=== PATIENT | female | born 1970 | race Caucasian/White ===

== ENCOUNTER 2018-07-21 16:06 | Emergency (ER) | payer MEDICAID ==
[~2018-07-21] VITALS: Ht 160 cm; Wt 79.4 kg
[~2018-07-21 16:06] MED LIST: ONDA4TAB11 PO; SULF-222 PO
--- NOTE | 2018-07-21 16:14 | ED Suture Removal/Wound Check ---
Suture/Wound Re-check Suture Removal/Wound Recheck : Suture Removal/Wound Recheck: Packing removed Progress I have seen and evaluated the patient. I removed the packing. I also reviewed her culture report and her organism is sensitive to Bactrim. She was instructed to continue antibiotic and previously instructed discharge plans. General Appearance: WD/WN, no apparent distress Skin Exam: normal color, warm/dry, other (yeast infection to the groin area. packing to left groin was removed. ) Physical Exam Vital Signs Vital Signs - First Documented 07/21/18 07/21/18 16:15 16:46 Temp 96.8 Pulse 89 Resp 16 B/P (MAP) 124/66 Pulse Ox 97 O2 Delivery Room Air Capillary Refill : General Appearance: WD/WN, no apparent distress Departure Impression Primary Impression: Abscess Disposition: 01 HOME, SELF-CARE Condition: Stable/Unchanged Departure-Patient Inst. Decision time for Depature: 16:29 Referrals: KENDRA VEGA,LOCAL PHYSICIAN (PCP) Primary Care Physician Patient Instructions: Wound Incision and Drainage (DC), Wound Care (DC) Add. Discharge Instructions: Continue your course of antibiotic treatment. Continue previously instructed discharge plans. Follow-up with a primary care provider within 1 week for recheck. Call first thing tomorrow morning for an appointment time. I have provided the contact information to Dr. Vega at [facility]. Return back to the emergency room for any concerns as needed. All discharge instructions reviewed with patient and/or family. Voiced understanding. BRENT SOTOMAYOR Jul 21, 2018 16:14
[2018-07-21 16:46] VITALS: BP 124/66
--- OUTSIDE RECORDS SUMMARY | 2018-07-21 19:05 | XMS REPORT | Continuity of Care Document ---
Author Author [facility] Address Unknown Phone Unavailable Allergies Active Description Code Type Severity Reaction Onset Reported/Identified Relationship to Patient Clinical Status Yes No Known Allergies Drug N/A N/A Medications There is no data. Problems Date Dx Coded Attending Type Code Diagnosis Diagnosed By 08/22/2013 Other 564.00 07/30/2015 Other 491.0 SIMPLE CHR BRONCHITIS 12/02/2016 Other 250.01 DIAB ROSALIND WO COMPL, TYPE I [JUVENILE TYPE], NOT UNCNTRLD 12/02/2016 Other V58.69 OTH MED, LT,CURRENT USE 12/02/2016 Other V82.9 SCREEN FOR CONDITION NOS 12/02/2016 Other 244.9 HYPOTHYROIDISM NOS 12/02/2016 Other 250.01 DIAB ROSALIND WO COMPL, TYPE I [JUVENILE TYPE], NOT UNCNTRLD 12/02/2016 Other V70.0 ROUTINE MEDICAL EXAM 09/08/2017 Other 250.01 DIAB ROSALIND WO COMPL, TYPE I [JUVENILE TYPE], NOT UNCNTRLD 09/08/2017 Other V58.69 OTH MED, LT,CURRENT USE 09/08/2017 Other V82.9 SCREEN FOR CONDITION NOS 09/08/2017 Other 244.9 HYPOTHYROIDISM NOS 09/08/2017 Other 250.01 DIAB ROSALIND WO COMPL, TYPE I [JUVENILE TYPE], NOT UNCNTRLD 09/08/2017 Other V70.0 ROUTINE MEDICAL EXAM Procedures There is no data. Results Test Result Range [facility] - 03/11/13 11:35 Osmo Calculated CANCEL-INCORRECT Sodium CANCEL-INCORRECT Potassium CANCEL-INCORRECT Calcium CANCEL-INCORRECT BUN CANCEL-INCORRECT Chloride CANCEL-INCORRECT Anion GAP CANCEL-INCORRECT Bun/Creat CANCEL-INCORRECT CO2 CANCEL-INCORRECT Glucose CANCEL-INCORRECT Creatinine CANCEL-INCORRECT Encounters ACCT No. Visit Date/Time Discharge Status Pt. Type Provider Facility Loc./Unit Complaint [id number] 03/11/2013 11:05:00 03/11/2013 11:05:00 ANAHI MATHUR MD, MARTINEZ [facility] DAYSTA [id number] 07/04/2018 15:59:00 Document Registration [id number] 12/26/2017 10:04:11 ACT Unknown [id number] 09/08/2017 11:19:00 09/08/2017 23:59:59 [facility] Outpatient KERLINE CRAWFORD, MJ [facility] [id number] 07/30/2015 19:00:00 Document Registration [id number] 12/10/2014 09:46:00 Document Registration [id number] 08/21/2013 22:22:00 Document Registration [id number] 05/30/2013 09:30:00 Document Registration [id number] 04/13/2016 14:49:00 04/13/2016 14:50:00 DIS Emergency KINZA NAPIER [facility] EMR
== END 2018-07-21 16:46 | disposition home or self-care (01) ==
LOC: EDUNIT# 16:06 → ER 16:08
DX: L02.214 Cutaneous abscess of groin (principal)

== ENCOUNTER 2018-11-04 04:28 | Emergency (ER) | payer MEDICAID ==
[~2018-11-04] VITALS: Ht 160 cm; Wt 78.5 kg
--- OUTSIDE RECORDS SUMMARY | 2018-11-04 04:35 | XMS REPORT ---
Author Author KINZA BRICEÑO Organization [facility] Address [address] [place] [address] Care Team Providers Care Business English Instructor Name Role Phone KINZA BRICEÑO Unavailable PROBLEMS Type Condition ICD9-CM Code [id number] Code Onset Dates Condition Status SNOMED Code Problem Hyperlipidemia E78.5 Active 32788941 Problem Menopausal and perimenopausal disorder N95.9 Active 028722129 Problem Type 1 diabetes E10.9 Active 329933286 Problem Hypothyroidism E03.9 Active 56100193 Problem Diabetic neuropathy E11.40 Active 407743466 ALLERGIES No Information ENCOUNTERS Encounter Location Date Diagnosis [place] [address] [id number] [place] [address] Oct, Hyperlipidemia E78.5 and Menopausal and perimenopausal disorder N95.9 [facility] [id number] [place] [address] Oct, Type 1 diabetes E10.9 [place] [id number] [place] [address] Oct, Type 1 diabetes E10.9 [place] [id number] [place] [address] 26161- 4[address] Oct, Type 1 diabetes E10.9 ; Hypothyroidism E03.9 and Diabetic neuropathy E11.40 [facility] [id number] [place] [address] Sep, IMMUNIZATIONS No Known Immunizations SOCIAL HISTORY Never Assessed REASON FOR VISIT Requests return call PLAN OF CARE VITAL SIGNS MEDICATIONS Medication Instructions Dosage Frequency Start Date End Date Duration Status Humalog 100 UNIT/ML Subcutaneous 3 times a day 12 units with morning meal and 6 units with lunch and evening meal. 8h 30 days Active RESULTS No Results PROCEDURES No Known procedures INSTRUCTIONS MEDICATIONS ADMINISTERED No Known Medications MEDICAL (GENERAL) HISTORY Type Description Date Medical History diabetes Medical History menieres disease Medical History d&c surgeries from miscarriage Medical History hypothyroidism Surgical History d&C from miscarriages (4)
--- OUTSIDE RECORDS SUMMARY | 2018-11-04 04:35 | XMS REPORT ---
Author Author KINZA BRICEÑO Organization [facility] Address [address] [place] [address] Care Team Providers Care Store Keeper Name Role Phone KINZA BRICEÑO Unavailable PROBLEMS Type Condition ICD9-CM Code [id number] Code Onset Dates Condition Status SNOMED Code Problem Hypothyroidism E03.9 Active 26472661 Problem Diabetic neuropathy E11.40 Active 816253358 Problem Type 1 diabetes E10.9 Active 112385183 ALLERGIES No Information ENCOUNTERS Encounter Location Date Diagnosis [facility] [address] [place] [address]- [phone] Oct, [facility] [place] [id number] [place] [address]2682- [address] Oct, Type 1 diabetes E10.9 [facility] [place] [id number] [place] [address]- 5[address] Oct, Type 1 diabetes E10.9 ; Hypothyroidism E03.9 and Diabetic neuropathy E11.40 [facility] [place] [address] [place] [address]- [address] Sep, IMMUNIZATIONS No Known Immunizations SOCIAL HISTORY Never Assessed REASON FOR VISIT medication PLAN OF CARE VITAL SIGNS MEDICATIONS Medication Instructions Dosage Frequency Start Date End Date Duration Status Humalog 100 unit/ml Subcutaneous 3 times a day 12 units with morning meal and 6 units with lunch and evening meal. 8h 30 days Active Lantus SoloStar 100 UNIT/ML Subcutaneous Once a day 24 units 24h 30 days Active RESULTS No Results PROCEDURES No Known procedures INSTRUCTIONS MEDICATIONS ADMINISTERED No Known Medications MEDICAL (GENERAL) HISTORY Type Description Date Medical History diabetes Medical History menieres disease Medical History d&c surgeries from miscarriage Medical History hypothyroidism Surgical History d&C from miscarriages (4)
--- OUTSIDE RECORDS SUMMARY | 2018-11-04 04:35 | XMS REPORT ---
Author Author KINZA BRICEÑO Organization [facility] Address [address] [place] [address] Care Team Providers Care Advanced Analytics Associate Name Role Phone KINZA BRICEÑO Unavailable PROBLEMS Type Condition ICD9-CM Code CEZ46-UG Code Onset Dates Condition Status SNOMED Code Problem Hyperlipidemia E78.5 Active 38982747 Problem Menopausal and perimenopausal disorder N95.9 Active 434290953 Problem Type 1 diabetes E10.9 Active 075773756 Problem Hypothyroidism E03.9 Active 71163208 Problem Diabetic neuropathy E11.40 Active 975353969 ALLERGIES No Information ENCOUNTERS Encounter Location Date Diagnosis [place] [id number] [address] Nov, [facility] [address] [address] Oct, [place] [address] [address] Oct, Hyperlipidemia E78.5 and Menopausal and perimenopausal disorder N95.9 [facility] [address] [address] Oct, Type 1 diabetes E10.9 [facility] [id number] [place] [address] Oct, Type 1 diabetes E10.9 [facility] [address] [address] Oct, Type 1 diabetes E10.9 ; Hypothyroidism E03.9 and Diabetic neuropathy E11.40 [place] [address] [address] Sep, IMMUNIZATIONS No Known Immunizations SOCIAL HISTORY Never Assessed REASON FOR VISIT DM ED Scheduled PLAN OF CARE VITAL SIGNS MEDICATIONS Unknown Medications RESULTS No Results PROCEDURES No Known procedures INSTRUCTIONS MEDICATIONS ADMINISTERED No Known Medications MEDICAL (GENERAL) HISTORY Type Description Date Medical History diabetes Medical History menieres disease Medical History d&c surgeries from miscarriage Medical History hypothyroidism Surgical History d&C from miscarriages (4)
--- OUTSIDE RECORDS SUMMARY | 2018-11-04 04:35 | XMS REPORT ---
Demographics Preferred Language Unknown Marital Status Unknown Orthodoxy Affiliation Unknown Race Unknown Ethnic Group Unknown Author Author LOVELY VALIENTE Organization [facility] Address [address] [place] [address] Care Team Providers Care Net Mobile Developer Name Role Phone LOVELY VALIENTE Unavailable PROBLEMS Unknown Problems ALLERGIES No Information ENCOUNTERS Encounter Location Date Diagnosis [facility] [address] [facility] [id number] [place] [address] Sep, IMMUNIZATIONS No Known Immunizations SOCIAL HISTORY Never Assessed REASON FOR VISIT request return call PLAN OF CARE VITAL SIGNS MEDICATIONS Unknown Medications RESULTS No Results PROCEDURES No Known procedures INSTRUCTIONS MEDICATIONS ADMINISTERED No Known Medications
--- OUTSIDE RECORDS SUMMARY | 2018-11-04 04:35 | XMS REPORT ---
Author Author KINZA BRICEÑO Organization [facility] Address [address] [place] [address] Care Team Providers Care Hospitality Associate Name Role Phone KINZA BRICEÑO Unavailable PROBLEMS Type Condition ICD9-CM Code FTA75-TQ Code Onset Dates Condition Status SNOMED Code Problem Hyperlipidemia E78.5 Active 70390712 Problem Menopausal and perimenopausal disorder N95.9 Active 412814190 Problem Type 1 diabetes E10.9 Active 476509832 Problem Hypothyroidism E03.9 Active 43206909 Problem Diabetic neuropathy E11.40 Active 298533917 ALLERGIES No Information ENCOUNTERS Encounter Location Date Diagnosis [place] [address] [place] [id number] [place] [address]1672- [address] Oct, Hyperlipidemia E78.5 and Menopausal and perimenopausal disorder N95.9 [facility] [id number] [place] [address] 61201- [address] Oct, Type 1 diabetes E10.9 [place] [id number] [place] [address] 25638- [address] Oct, Type 1 diabetes E10.9 [place] [id number] [place] [address]- [address] Oct, Type 1 diabetes E10.9 ; Hypothyroidism E03.9 and Diabetic neuropathy E11.40 [place] [id number] [place] [address] 06[address]- 0524 Sep, IMMUNIZATIONS No Known Immunizations SOCIAL HISTORY Never Assessed REASON FOR VISIT PLAN OF CARE VITAL SIGNS MEDICATIONS Medication Instructions Dosage Frequency Start Date End Date Duration Status Atorvastatin Calcium 20 MG Orally Once a day 1 tablet 24h Oct, 30 day(s) Active RESULTS No Results PROCEDURES No Known procedures INSTRUCTIONS MEDICATIONS ADMINISTERED No Known Medications MEDICAL (GENERAL) HISTORY Type Description Date Medical History diabetes Medical History menieres disease Medical History d&c surgeries from miscarriage Medical History hypothyroidism Surgical History d&C from miscarriages (4)
--- OUTSIDE RECORDS SUMMARY | 2018-11-04 04:35 | XMS REPORT ---
Author Author KINZA BRICEÑO Organization [facility] Address [address] [place] [address] Care Team Providers Care Beam Warper Name Role Phone KINZA BRICEÑO Unavailable PROBLEMS Type Condition ICD9-CM Code QGL32-AC Code Onset Dates Condition Status SNOMED Code Problem Hyperlipidemia E78.5 Active 31868428 Problem Menopausal and perimenopausal disorder N95.9 Active 590778323 Problem Type 1 diabetes E10.9 Active 155349644 Problem Hypothyroidism E03.9 Active 44729546 Problem Diabetic neuropathy E11.40 Active 862784850 ALLERGIES No Known Allergies ENCOUNTERS Encounter Location Date Diagnosis [place] [address] [address] Nov, [facility] [address] [address] Oct, [facility] [address] [address] Oct, Hyperlipidemia E78.5 and Menopausal and perimenopausal disorder N95.9 [facility] [id number] [place] [address]- [address] Oct, Type 1 diabetes E10.9 [facility] [id number] [place] [address] 88342- [address] Oct, Type 1 diabetes E10.9 [facility] [address] [address]- [address] Oct, Type 1 diabetes E10.9 ; Hypothyroidism E03.9 and Diabetic neuropathy E11.40 [facility] [address] [address]- [address] Sep, IMMUNIZATIONS No Known Immunizations SOCIAL HISTORY Never Assessed REASON FOR VISIT Establish Care - dr yost in [facility] - nancy gage , help with medications - conor GAGE , having problems with thyroid/ very tired/ has lump in neck Nancy GAGE , says sugar levels are going up and down due to stress _Servando PLAN OF CARE Activity Details Follow Up 3 Months Reason: VITAL SIGNS Height 5'3 in 2018-10-24 Weight 176.1 lbs 2018-10-24 Temperature 98.0 degrees Fahrenheit 2018-10-24 Heart Rate 82 bpm 2018-10-24 Respiratory Rate 16 2018-10-24 BMI 34.39 kg/m2 2018-10-24 Blood pressure systolic 88 mmHg 2018-10-24 Blood pressure diastolic 54 mmHg 2018-10-24 MEDICATIONS Medication Instructions Dosage Frequency Start Date End Date Duration Status Humalog 100 unit/ml Subcutaneous 3 times a day as directed 8h Active BD Insulin Syringe Ultrafine 31G X 5/16 as directed Active True Metrix Level 2 Normal as directed Active Lantus SoloStar 100 UNIT/ML Subcutaneous at bedtime as directed Active RESULTS No Results PROCEDURES Procedure Date Ordered Result Body Site LAB NOT BILLED BY [employer] Oct 24, 2018 GLYCATED HEMOGLOBIN TEST Oct 24, 2018 INSTRUCTIONS MEDICATIONS ADMINISTERED No Known Medications MEDICAL (GENERAL) HISTORY Type Description Date Medical History diabetes Medical History menieres disease Medical History d&c surgeries from miscarriage Medical History hypothyroidism Surgical History d&C from miscarriages (4)
[2018-11-04] MEDS ORDERED: IBUPROFEN 800 MG (MOTRIN) TAB PO ONE (04:45)
--- NOTE | 2018-11-04 04:46 | ED Fall/Injury ---
General Chief Complaint: Lower Extremity Stated Complaint: FALL-RT KNEE PAIN Nursing Triage Note: Patient lost her footing and fell directly on her left knee. She is rating her knee pain at 9/10. Source: patient, spouse Exam Limitations: no limitations History of Present Illness Date Seen by Provider: Nov 04, 2018 Time Seen by Provider: 04:34 Initial Comments Patient presents the ER by EMS with chief complaint that she was stepping down a carpeted stair this morning and fell forward landing on her right knee in a flexed position. She did not strike her head nor lose consciousness or have any nausea. She's not having any dysuria or pain anywhere but in her right knee. She has a history of knee effusions and her doctor had talked about maybe having it tapped. She has sensation in her foot but is having significant pain which she relates as moderate to severe. She has not taken anything for the pain yet. EMS reports that she was able to stand up with 2 persons assist and put more than toe-touch pressure on it. Allergies and Home Medications Allergies Coded Allergies: No Known Drug Allergies (Unverified , 11/04/18) Home Medications Ondansetron 4 Mg Tab.rapdis, 4 MG PO Q6H PRN for NAUSEA/VOMITING Prescribed by: LORRAINE MILIAN on 07/18/18 1007 Sulfamethoxazole/Trimethoprim 1 Each Tablet, 1 EACH PO BID Prescribed by: LORRAINE MILIAN on 07/18/18 1007 Patient Home Medication List Home Medication List Reviewed: Yes Review of Systems Review of Systems Constitutional: No chills, No diaphoresis Eyes: Denies Blindness, Denies Blurred Vision Ears, Nose, Mouth, Throat: denies ear pain, denies ear discharge Respiratory: No cough, No short of breath Cardiovascular: No chest pain, No edema Gastrointestinal: No abdominal pain, No constipation, No diarrhea, No nausea Genitourinary: No discharge, No dysuria : No Past Txopogh-Atodhb-Tpaptq Hx Patient Social History Alcohol Use: Denies Use Recreational Drug Use: No Type Used: Cigarettes 2nd Hand Smoke Exposure: Yes Recent Foreign Travel: No Contact w/Someone Who Travel: No Recent Infectious Disease Expo: No Recent Hopitalizations: No Seasonal Allergies Seasonal Allergies: No Past Medical History Surgeries: Yes (DNC) Section Respiratory: No Currently Using CPAP: No Currently Using BIPAP: No Cardiac: No Neurological: No Genitourinary: No Gastrointestinal: No Musculoskeletal: No Endocrine: Yes Diabetes, Insulin dep HEENT: Yes (Meniere disease) Loss of Vision: Denies Hearing Impairment: Denies Cancer: No Psychosocial: Yes (OCD) Anxiety Integumentary: Yes Pruritis, Recent Skin Changes Blood Disorders: No Family Medical History Heart Disease, Diabetes Physical Exam Vital Signs Vital Signs - First Documented 11/04/18 04:32 Pulse 74 Resp 14 B/P (MAP) 130/64 (86) Pulse Ox 98 O2 Delivery Room Air Capillary Refill : Less Than 3 Seconds Height, Weight, BMI Height: 5'3.00" Weight: 173lbs. oz. 78.496507cb; 28.12 BMI Method:Stated General Appearance: WD/WN, mild distress HEENT: PERRL/EOMI, normal ENT inspection Neck: non-tender, full range of motion Cardiovascular: normal peripheral pulses, regular rate, rhythm Respiratory: no respiratory distress, no accessory muscle use Peripheral Pulses: 2+ Dorsalis Pedis (R), 2+ Left Dors-Pedis (L) Extremities: other (right knee has a mild joint effusion non-ballotable patella without erythema or ecchymoses or deformity.) Neurologic/Psychiatric: no motor/sensory deficits, alert, normal mood/affect, oriented x 3 June Coma Score Best Eye Response: (4) Open Spontaneously Best Verbal Response: (5) Oriented Best Motor Response: (6) Obeys Commands June Total: 15 Progress/Results/Core Measures Results/Orders My Orders Orders - SHAILESH HURTADO Ibuprofen Tablet (Motrin Tablet) (11/04/18 04:45) Knee, Right, 3 Views (11/04/18 04:41) Medications Given in ED Current Medications Medications Dose Ordered Sig/Jone Route Start Time Stop Time Status Last Admin Dose Admin Ibuprofen 800 mg ONCE ONCE PO 11/04/18 04:45 11/04/18 04:47 DC 11/04/18 04:49 800 MG Vital Signs/I&O 11/04/18 04:32 Pulse 74 Resp 14 B/P (MAP) 130/64 (86) Pulse Ox 98 O2 Delivery Room Air Blood Pressure Mean: 86 Diagnostic Imaging Diagonstic Imaging: Xray Plain Films/CT/US/NM/MRI: knee (r) Comments No acute osseous abnormality. There is some effusion seen of the joint Reviewed: Reviewed by Me Departure Impression Primary Impression: Knee pain Qualified Codes: M25.561 - Pain in right knee Additional Impressions: Joint effusion of knee Qualified Codes: M25.461 - Effusion, right knee Fall (on) (from) other stairs and steps, initial encounter Disposition: HOME, SELF-CARE Condition: Stable Departure-Patient Inst. Decision time for Depature: 05:40 Referrals: NO,LOCAL PHYSICIAN (PCP/Family) Primary Care Physician Patient Instructions: Knee Pain (DC) Add. Discharge Instructions: Do some range of motion exercises with your knee and wear a knee wrap for compression. Apply ice for 20 minutes every 4 hours as needed for swelling and pain. Keep the knee elevated when not use. Use Tylenol 1000 mg and/or ibuprofen 800 mg as needed for pain. Follow-up in 7-10 days with primary care for recheck and possible referral as needed. All discharge instructions reviewed with patient and/or family. Voiced understanding. SHAILESH HURTAOD Nov 04, 2018 04:46
--- OUTSIDE RECORDS SUMMARY | 2018-11-04 05:31 | XMS REPORT | Continuity of Care Document ---
Author Author [facility] Address Unknown Phone Unavailable Allergies Active Description Code Type Severity Reaction Onset Reported/Identified Relationship to Patient Clinical Status Yes No Known Allergies Drug N/A N/A Yes No Known Drug Allergies [id number] Drug Allergy Unknown N/A 11/04/2018 Medications There is no data. 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 DEPENDENCE, UNSPECIFIED, UNCOMP 07/18/2018 LORRAINE MILIAN MD Ot F41.9 ANXIETY DISORDER, UNSPECIFIED 07/18/2018 LORRAINE MILIAN MD Ot F42.9 OBSESSIVE-COMPULSIVE DISORDER, UNSPECIFI 07/18/2018 LORRAINE MILIAN MD Ot L02.211 CUTANEOUS ABSCESS OF ABDOMINAL WALL 07/18/2018 LORRAINE MILIAN MD Ot Z82.49 FAMILY HX OF ISCHEM HEART DIS AND OTH DI 07/21/2018 BRENT SOTOMAYOR Ot L02.214 CUTANEOUS ABSCESS OF GROIN 07/24/2018 LORRAINE MILIAN MD Ot E11.65 TYPE 2 DIABETES MELLITUS WITH HYPERGLYCE 07/24/2018 LORRAINE MILIAN MD Ot F17.200 NICOTINE DEPENDENCE, UNSPECIFIED, UNCOMP 07/24/2018 LORRAINE MILIAN MD Ot F41.9 ANXIETY DISORDER, UNSPECIFIED 07/24/2018 LORRAINE MILIAN MD, Ot F42.9 OBSESSIVE-COMPULSIVE DISORDER, UNSPECIFI 07/24/2018 LORRAINE MILIAN MD Ot L02.211 CUTANEOUS ABSCESS OF ABDOMINAL WALL 07/24/2018 LORRAINE MILIAN MD Ot Z82.49 FAMILY HX OF ISCHEM HEART DIS AND OTH DI 07/27/2018 BRENT SOTOMAYOR Ot L02.214 CUTANEOUS ABSCESS OF GROIN Procedures There is no data. Results Test Result Range [facility] - 03/11/13 11:35 Osmo Calculated CANCEL-INCORRECT Sodium CANCEL-INCORRECT Potassium CANCEL-INCORRECT Calcium CANCEL-INCORRECT BUN CANCEL-INCORRECT Chloride CANCEL-INCORRECT Anion GAP CANCEL-INCORRECT Bun/Creat CANCEL-INCORRECT CO2 CANCEL-INCORRECT Glucose CANCEL-INCORRECT Creatinine CANCEL-INCORRECT Complete blood count (CBC) with automated white blood cell (WBC) differential - 07/18/18 06:50 Blood leukocytes automated count (number/volume) 9.6 10*3/uL 4.3-11.0 Blood erythrocytes automated count (number/volume) 4.59 10*6/uL 4.35-5.85 Venous blood hemoglobin measurement (mass/volume) 14.4 g/dL 11.5-16.0 Blood hematocrit (volume fraction) 42 % 35-52 Automated erythrocyte mean corpuscular volume 90 [foz_us] 80-99 Automated erythrocyte mean corpuscular hemoglobin (mass per erythrocyte) 31 pg 25-34 Automated erythrocyte mean corpuscular hemoglobin concentration measurement ( mass/volume) 35 g/dL 32-36 Automated erythrocyte distribution width ratio 14.3 % 10.0-14.5 Automated blood platelet count (count/volume) 221 10*3/uL 130-400 Automated blood platelet mean volume measurement 11.5 [foz_us] 7.4-10.4 Automated blood neutrophils/100 leukocytes 60 % 42-75 Automated blood lymphocytes/100 leukocytes 28 % 12-44 Blood monocytes/100 leukocytes 11 % 0-12 Automated blood eosinophils/100 leukocytes 1 % 0-10 Automated blood basophils/100 leukocytes 0 % 0-10 Blood neutrophils automated count (number/volume) 5.8 10*3 1.8-7.8 Blood lymphocytes automated count (number/volume) 2.7 10*3 1.0-4.0 Blood monocytes automated count (number/volume) 1.0 10*3 0.0-1.0 Automated eosinophil count 0.1 10*3/uL 0.0-0.3 Automated blood basophil count (count/volume) 0.0 10*3/uL 0.0-0.1 Comprehensive metabolic panel - 07/18/18 06:50 Serum or plasma sodium measurement (moles/volume) 134 mmol/L 135-145 Serum or plasma potassium measurement (moles/volume) 4.1 mmol/L 3.6-5.0 Serum or plasma chloride measurement (moles/volume) 99 mmol/L 98-107 Carbon dioxide 27 mmol/L 21-32 Serum or plasma anion gap determination (moles/volume) 8 mmol/L 5-14 Serum or plasma urea nitrogen measurement (mass/volume) 8 mg/dL 7-18 Serum or plasma creatinine measurement (mass/volume) 0.80 mg/dL 0.60-1.30 Serum or plasma urea nitrogen/creatinine mass ratio 10 NRG Serum or plasma creatinine measurement with calculation of estimated glomerular filtration rate > NRG Serum or plasma glucose measurement (mass/volume) 301 mg/dL 70-105 Serum or plasma calcium measurement (mass/volume) 9.2 mg/dL 8.5-10.1 Serum or plasma total bilirubin measurement (mass/volume) 0.5 mg/dL 0.1-1.0 Serum or plasma alkaline phosphatase measurement (enzymatic activity/volume) 105 U/L 40-136 Serum or plasma aspartate aminotransferase measurement (enzymatic activity/ volume) 12 U/L 5-34 Serum or plasma alanine aminotransferase measurement (enzymatic activity/volume ) 9 U/L 0-55 Serum or plasma protein measurement (mass/volume) 7.6 g/dL 6.4-8.2 Serum or plasma albumin measurement (mass/volume) 3.9 g/dL 3.2-4.5 CALCIUM CORRECTED 9.3 mg/dL 8.5-10.1 Blood lactic acid measurement (moles/volume) - 07/18/18 07:02 Blood lactic acid measurement (moles/volume) 0.92 mmol/L 0.50-2.00 Bacterial blood culture - 07/18/18 07:02 Bacterial blood culture NG NRG Capillary blood glucose measurement by glucometer (mass/volume) - 07/18/18 07: 09 Capillary blood glucose measurement by glucometer (mass/volume) 284 mg/dL 70-110 Bacterial blood culture - 07/18/18 07:10 Bacterial blood culture NG NRG Gram stain microscopy - 07/18/18 09:38 Gram stain microscopy Many Gram positive cocci of varying morphologies NRG Bacteria identification in wound by culture - 07/18/18 09:38 Bacteria identification in wound by culture SEE COMMEN NRG FREE TEXT EXTERNAL METHICILLIN-SENSITIVE NRG QUANTITY OF GROWTH . NRG FREE TEXT ENTRY 2 RML SENSITIVITY REPORTED 07/21/18 12:05 NRG RML Sensitivity Panel - 07/18/18 09:38 Oxacillin susceptibility test by minimum inhibitory concentration 1 NRG Clindamycin susceptibility test by minimum inhibitory concentration <= NRG Erythromycin susceptibility test by minimum inhibitory concentration > NRG Trimethoprim/sulfamethoxazole susceptibility test by minimum inhibitoryconcentration S NRG Vancomycin susceptibility test by minimum inhibitory concentration 1 NRG Levofloxacin susceptibility test by minimum inhibitory concentration 4 NRG Rifampin susceptibility test by minimum inhibitory concentration <= NRG Cefazolin susceptibility test by minimum inhibitory concentration < = NRG Linezolid susceptibility test by minimum inhibitory concentration 2 NRG Penicillin G susceptibility test by minimum inhibitory concentration > NRG Minocycline susc GENARO <= NRG CMP - 10/24/18 10:13 GLUCOSE 234 mg/dL 65-99 UREA NITROGEN (BUN) 10 mg/dL 7-25 CREATININE 0.67 mg/dL 0.50-1.10 eGFR NON-AFR. LIBYAN 103 mL/min/1.73m2 > OR=60 eGFR 120 mL/min/1.73m2 > OR=60 BUN/CREATININE RATIO NOT APPLICABLE (calc) 6-22 SODIUM 136 mmol/L 135-146 POTASSIUM 4.5 mmol/L 3.5-5.3 CHLORIDE 101 mmol/L 98-110 CARBON DIOXIDE 30 mmol/L 20-32 CALCIUM 9.4 mg/dL 8.6-10.2 PROTEIN, TOTAL 7.6 g/dL 6.1-8.1 ALBUMIN 4.1 g/dL 3.6-5.1 GLOBULIN 3.5 g/dL (calc) 1.9-3.7 ALBUMIN/GLOBULIN RATIO 1.2 (calc) 1.0-2.5 BILIRUBIN, TOTAL 0.5 mg/dL 0.2-1.2 ALKALINE PHOSPHATASE 92 U/L 33-115 AST 11 U/L 10-35 ALT 8 U/L 6-29 Encounters ACCT No. Visit Date/Time Discharge Status Pt. Type Provider Facility Loc./Unit Complaint [id number] 03/11/2013 11:05:00 03/11/2013 11:05:00 CAN Outpatient KAREEN CRAWFORD, MARTINEZ Tucker [facility] [id number] 07/04/2018 15:59:00 Document Registration [id number] 10/24/2018 09:20:00 10/24/2018 23:59:59 CLS Outpatient [facility] [id number] 10/24/2018 09:20:00 Document Registration [id number] 12/26/2017 10:04:11 ACT Unknown [id number] 09/08/2017 11:19:00 09/08/2017 23:59:59 CLS Outpatient KERLINE CRAWFORD, MJ Guevara [facility] LAB [id number] 07/30/2015 19:00:00 Document Registration [id number] 12/10/2014 09:46:00 Document Registration [id number] 08/21/2013 22:22:00 Document Registration [id number] 05/30/2013 09:30:00 Document Registration [id number] 04/13/2016 14:49:00 04/13/2016 14:50:00 DIS Emergency KINZA NAPIER [facility] EMR [id number] 07/21/2018 16:08:00 07/21/2018 16:46:00 DIS Emergency BRENT SOTOMAYOR [facility] ER WOUND CARE [id number] 07/18/2018 06:36:00 07/18/2018 10:15:00 DIS Emergency LORRAINE MILIAN MD [facility] ER BOIL ON LEFT LEG, FALL ON 07-11-18 [id number] 11/04/2018 04:30:00 ACT Emergency GNEESIS CRAWFORD, SHAILESH Park [facility] ER FALL-RT KNEE PAIN
[2018-11-04 06:08] VITALS: BP 130/64
--- NOTE | 2018-11-04 07:10 | Diagnostic Imaging Report ---
Right knee at 517. Indication: Fell, knee pain. 3 views were obtained. There are no prior studies available for comparison. There is no fracture, dislocation or acute bony abnormality evident. The knee joint is fairly well maintained. The soft tissues are unremarkable. Impression: There is no evidence for an acute bony abnormality. Dictated by: Dictated on workstation # [id number]
== END 2018-11-04 06:08 | disposition home or self-care (01) ==
LOC: EDUNIT# 04:28 → ER 04:30
DX: M25.461 Effusion, right knee (principal); E11.9 Type 2 diabetes mellitus without complications; F41.9 Anxiety disorder, unspecified; F42.9 Obsessive-compulsive disorder, unspecified; Z77.22 Contact with and (suspected) exposure to environmental tobacco smoke (acute) (chronic); Z98.890 Other specified postprocedural states; Z82.49 Family history of ischemic heart disease and other diseases of the circulatory system; W10.8XXA Fall (on) (from) other stairs and steps, initial encounter
CPT/HCPCS: 73562

== ENCOUNTER 2019-01-30 21:10 | Emergency (ER) | payer MEDICAID ==
[~2019-01-30] VITALS: Ht 160 cm; Wt 78.9 kg
--- OUTSIDE RECORDS SUMMARY | 2019-01-30 21:34 | XMS REPORT ---
Author Author RJ SULLIVAN [facility] Address [address] [place] [address] Care Team Providers Care Family Practice Nurse Practitioner Name Role Phone RJ SULLIVAN Unavailable PROBLEMS Type Condition ICD9-CM Code FYF90-UD Code Onset Dates Condition Status SNOMED Code Problem Hyperlipidemia E78.5 Active 46968551 Problem Menopausal and perimenopausal disorder N95.9 Active 668535430 Problem Type 1 diabetes E10.9 Active 267059412 Problem Hypothyroidism E03.9 Active 16127569 Problem Diabetic neuropathy E11.40 Active 012011583 ALLERGIES No Known Allergies ENCOUNTERS Encounter Location Date Diagnosis [facility] [address] [address] Nov, [facility] [id number] [place] [phone] Oct, Abscess L02.91 [facility] [address] [phone] Oct, [facility] [id number] [place] [phone] Oct, Hyperlipidemia E78.5 and Menopausal and perimenopausal disorder N95.9 [facility] [id number] [place] [phone] Oct, Type 1 diabetes E10.9 [facility] [address] [address] Oct, Type 1 diabetes E10.9 [facility] [id number] [place] [phone] Oct, Type 1 diabetes E10.9 ; Hypothyroidism E03.9 and Diabetic neuropathy E11.40 [facility] [id number] [place] [address] Sep, IMMUNIZATIONS No Known Immunizations SOCIAL HISTORY Never Assessed REASON FOR VISIT red, sore area in her left groin area that she noticed last noc. denies any drainage. teo reese of staff infection in left groin area. PLAN OF CARE Activity Details Follow Up prn Reason: VITAL SIGNS Height 5'3 in 2018-11-12 Weight 176.4 lbs 2018-11-12 Temperature 98.0 degrees Fahrenheit 2018-11-12 Heart Rate 84 bpm 2018-11-12 Respiratory Rate 20 2018-11-12 BMI 34.45 kg/m2 2018-11-12 Blood pressure systolic 110 mmHg 2018-11-12 Blood pressure diastolic 68 mmHg 2018-11-12 MEDICATIONS Medication Instructions Dosage Frequency Start Date End Date Duration Status Bactrim DS 800-160 MG Orally Twice a day 1 tablet 12h Oct, 10 days Active True Metrix Level 2 Normal as directed Active Lantus SoloStar 100 UNIT/ML Subcutaneous Once a day 24 units 24h 30 days Active Humalog 100 UNIT/ML Subcutaneous 3 times a day 12 units with morning meal and 6 units with lunch and evening meal. 8h 30 days Active Atorvastatin Calcium 20 MG Orally Once a day 1 tablet 24h Oct, 30 day(s) Active BD Insulin Syringe Ultrafine 31G X 5/16 as directed Active RESULTS No Results PROCEDURES No Known procedures INSTRUCTIONS MEDICATIONS ADMINISTERED No Known Medications MEDICAL (GENERAL) HISTORY Type Description Date Medical History diabetes Medical History menieres disease Medical History d&c surgeries from miscarriage Medical History hypothyroidism Surgical History d&C from miscarriages (4)
--- NOTE | 2019-01-30 21:42 | ED Back Pain ---
General Stated Complaint: PAIN IN LOWER BACK Source of Information: Patient Exam Limitations: No Limitations History of Present Illness Date Seen by Provider: Jan 30, 2019 Time Seen by Provider: 21:41 Initial Comments To ER with midline low back pain. This began 3 days ago. States that she is a type I diabetic. She's had some nausea but no vomiting. No fever or chills. The pain is constant and does not improve with the application of heat. It does not radiate down either leg. She has had some urinary frequency. She is concerned about urinary tract infection Location: Lumbar Spine, Paraspinous Muscles Timing/Duration: 2-3 Days Severity: Moderate Pain/Injury Location: Back Associated Symptoms: lower back pain Allergies and Home Medications Allergies Coded Allergies: No Known Drug Allergies (Unverified , 11/04/18) Home Medications Ondansetron 4 Mg Tab.rapdis, 4 MG PO Q6H PRN for NAUSEA/VOMITING Prescribed by: LORRAINE MILIAN on 07/18/18 1007 Sulfamethoxazole/Trimethoprim 1 Each Tablet, 1 EACH PO BID Prescribed by: LORRAINE MILIAN on 07/18/18 1007 Patient Home Medication List Home Medication List Reviewed: Yes Review of Systems Constitutional: see HPI; No chills, No fever Respiratory: no symptoms reported Cardiovascular: no symptoms reported Gastrointestinal: nausea; No vomiting Genitourinary: no symptoms reported Musculoskeletal: see HPI, back pain Skin: no symptoms reported Psychiatric/Neurological: No Symptoms Reported Past Lkfnkrv-Scytyq-Rykwqd Hx Patient Social History Type Used: Cigarettes 2nd Hand Smoke Exposure: Yes Recent Foreign Travel: No Contact w/Someone Who Travel: No Recent Hopitalizations: No Seasonal Allergies Seasonal Allergies: No Past Medical History Surgeries: Yes (DNC) Section Respiratory: No Currently Using CPAP: No Currently Using BIPAP: No Cardiac: No Neurological: No Genitourinary: No Gastrointestinal: No Musculoskeletal: No Endocrine: Yes Diabetes, Insulin dep HEENT: Yes (Meniere disease) Loss of Vision: Denies Hearing Impairment: Denies Cancer: No Psychosocial: Yes (OCD) Anxiety Integumentary: Yes Pruritis, Recent Skin Changes Blood Disorders: No Family Medical History Heart Disease, Diabetes Physical Exam Vital Signs Vital Signs - First Documented 01/30/19 22:07 Temp 96.4 Pulse 79 Resp 16 B/P (MAP) 124/66 (85) Capillary Refill : Height, Weight, BMI Height: 5'3.00" Weight: 173lbs. oz. 78.266801ll; 28.12 BMI Method:Stated General Appearance: No Apparent Distress, WD/WN HEENT: PERRL/EOMI, TMs Normal Respiratory: Normal Breath Sounds, No Accessory Muscle Use, No Respiratory Distress Gastrointestinal: Normal Bowel Sounds, Non Tender, Soft Extremity: Normal Capillary Refill, Normal Inspection Neurologic/Psychiatric: Alert, Oriented x3 Skin: Normal Color, Warm/Dry Progress/Results/Core Measures Results/Orders Lab Results Laboratory Tests Test 01/30/19 21:34 Range/Units Urine Color YELLOW Urine Clarity SLIGHTLY CLOUDY Urine pH 6 5-9 Urine Specific [place] 1.020 1.016-1.022 Urine Protein 1+ H NEGATIVE Urine Glucose (UA) NEGATIVE NEGATIVE Urine Ketones NEGATIVE NEGATIVE Urine Nitrite NEGATIVE NEGATIVE Urine Bilirubin NEGATIVE NEGATIVE Urine Urobilinogen 1 NORMAL MG/DL Urine Leukocyte Esterase 1+ H NEGATIVE Urine RBC (Auto) NEGATIVE NEGATIVE Urine RBC NONE /HPF Urine WBC 0-2 /HPF Urine Squamous Epithelial Cells 2-5 /HPF Urine Crystals NONE /LPF Urine Bacteria TRACE /HPF Urine Casts NONE /LPF Urine Mucus LARGE H /LPF Urine Culture Indicated NO My Orders Orders - JESSY BOYD APRN Ua Culture If Indicated (01/30/19 21:40) Vital Signs/I&O 01/30/19 22:07 Temp 96.4 Pulse 79 Resp 16 B/P (MAP) 124/66 (85) Departure Impression Primary Impression: Acute low back pain Qualified Codes: M54.5 - Low back pain Disposition: 01 HOME, SELF-CARE Condition: Stable Departure-Patient Inst. Decision time for Depature: 22:12 Referrals: NO,LOCAL PHYSICIAN (PCP/Family) Primary Care Physician Patient Instructions: Low Back Pain (DC) Add. Discharge Instructions: 1. Follow-up with your doctor later this week 2. Return to ER for any concerns 3. Scripts Methocarbamol (Robaxin-750) 750 Mg Tablet 750 MG PO Q6H PRN for PAIN-MODERATE TO SEVERE, #14 TAB Prov: JESSY BOYD APRN 01/30/19 JESSY BOYD APRN Jan 30, 2019 21:42
[2019-01-30 21:51] LABS: BILIRUBIN,URINE NEGATIVE (NEGATIVE); CLARITY,URINE SLIGHTLY CLOUDY; COLOR,URINE YELLOW; GLUCOSE, URINE (UA) NEGATIVE (NEGATIVE); KETONES,URINE NEGATIVE (NEGATIVE); LEUKOCYTE ESTERASE ,URINE 1+ (NEGATIVE); NITRITE,URINE NEGATIVE (NEGATIVE); PH,URINE 6 (5-9); PROTEIN,URINE 1+ (NEGATIVE); UROBILINOGEN,URINE 1 MG/DL (NORMAL)
[2019-01-30 22:06] LABS: BACTERIA,URINE TRACE /HPF; WBC,URINE 0-2 /HPF
[2019-01-30] MEDS ORDERED: METH-313 PO (22:14)
[2019-01-30] MEDS ORDERED: RX-HYDROCODONE/APAP 5/325 MG #4 TAB PK PO ONE (22:15)
[2019-01-30] MEDS ORDERED: RX-HYDROCODONE/APAP 5/325 MG #4 TAB PK PO PRN (22:15)
[2019-01-30 22:18] VITALS: BP 122/60
--- OUTSIDE RECORDS SUMMARY | 2019-01-30 22:25 | XMS REPORT | Continuity of Care Document ---
Author Author [facility] Address Unknown Phone Unavailable Allergies Active Description Code Type Severity Reaction Onset Reported/Identified Relationship to Patient Clinical Status Yes No Known Allergies Drug N/A N/A Yes No Known Drug Allergies [id number] Drug Allergy Unknown N/A 11/04/2018 Medications There [...] is no data. Results Test Result Range [facility] - 03/11/13 11:35 Osmo Calculated CANCEL-INCORRECT Sodium [...] 7-25 CREATININE 0.67 mg/dL 0.50-1.10 eGFR NON-AFR. [facility] 103 mL/min/1.73m2 > OR=60 eGFR 120 mL/min/1.73m2 [...] Status Pt. Type Provider Facility Loc./Unit Complaint [id number] 12/26/2018 09:14:00 12/26/2018 23:59:59 CLS Preadmit FR Riki Cln [id number] 03/11/2013 11:05:00 03/11/2013 11:05:00 CAN Outpatient KAREEN CRAWFORD, MARTINEZ Tucker [facility] [id number] 07/04/2018 15:59:00 Document Registration [id number] 12/14/2018 19:30:00 12/14/2018 23:59:59 CLS Outpatient [facility] [id number] 10/24/2018 09:20:00 Document Registration [id number] 12/26/2017 10:04:11 ACT Unknown [id number] 09/08/2017 11:19:00 09/08/2017 23:59:59 CLS Outpatient RIKI CRAWFORD, MJ Guevara [facility] LAB [id number] 07/30/2015 19:00:00 Document Registration [id number] 12/10/2014 09:46:00 Document Registration [id number] 08/21/2013 22:22:00 Document Registration [id number] 05/30/2013 09:30:00 Document Registration [id number] 04/13/2016 14:49:00 04/13/2016 14:50:00 DIS Emergency KINZA NAPIER [facility] [id number] 11/04/2018 04:30:00 11/04/2018 06:08:00 DIS Emergency GENESIS CRAWFORD, SHAILESH Park [facility] ER FALL-RT KNEE PAIN [id number] 07/21/2018 16:08:00 07/21/2018 16:46:00 DIS Emergency BRENT SOTOMAYOR [facility] ER WOUND CARE [id number] 07/18/2018 06:36:00 07/18/2018 10:15:00 DIS Emergency LORRAINE MILIAN MD [facility] ER BOIL ON LEFT LEG, FALL ON 07-11-18
== END 2019-01-30 22:20 | disposition home or self-care (01) ==
LOC: EDUNIT# 21:10 → ER 21:12
DX: M54.5 Low back pain (principal); E11.9 Type 2 diabetes mellitus without complications; F41.9 Anxiety disorder, unspecified; F42.9 Obsessive-compulsive disorder, unspecified; Z82.49 Family history of ischemic heart disease and other diseases of the circulatory system; Z77.22 Contact with and (suspected) exposure to environmental tobacco smoke (acute) (chronic); Z98.890 Other specified postprocedural states
CPT/HCPCS: 81000; 99283

== ENCOUNTER → 2019-07-06 | Outpatient (CLI) | payer MEDICAID ==
[~2019-07-06] MED LIST changes: +METH-313 PO
--- NOTE | 2019-07-06 17:37 | Diagnostic Imaging Report ---
PROCEDURE: US Thyroid. TECHNIQUE: Multiple real-time grayscale images were obtained of the thyroid in various projections. INDICATION: Goiter. FINDINGS: No comparison available. Both lobes of the thyroid are enlarged. The right lobe measures 7.1 x 3.5 x 3.5 cm. The left lobe measures 6.0 x 3.1 x 3.9 cm. No discrete nodules are seen. There are extensive bilateral tiny hypoechoic areas with echogenic internal septations. Pattern is suggestive of Tisha's thyroiditis. IMPRESSION: 1. Enlarged thyroid with sonographic features suggestive of Tisha's thyroiditis. No suspicious nodules. Dictated by: Dictated on workstation # [id number]
== END ==
LOC: RAD 14:49
PROVIDERS: ATTEND Pediatrics
DX: E04.9 Nontoxic goiter, unspecified (principal)
CPT/HCPCS: 76536

== ENCOUNTER 2019-10-28 03:45 | Emergency (ER) | payer MEDICAID ==
[~2019-10-28] VITALS: Ht 160 cm; Wt 85.7 kg
--- NOTE | 2019-10-28 04:06 | ED Cough/URI ---
General Stated Complaint: COUGH/SORE THROAT/EAR ACHE FEVER Source: patient, spouse Exam Limitations: no limitations History of Present Illness Date Seen by Provider: Oct 28, 2019 Time Seen by Provider: 03:50 Initial Comments Patient presents to ER by private conveyance with chief complaint of about 2 weeks of runny nose sore throat cough sometimes productive. She is on amoxicillin or Augmentin from her primary care doctor, Dr. Duvall. She does not feel that she's getting any better despite 4 days of antibiotics. She does smoke about one half packs of cigarettes per day without a history of COPD and has no wheezing. She does not take breathing treatments. She denies any fevers or chills. She is concerned that her bronchitis is turned to a pneumonia. Allergies and Home Medications Allergies Coded Allergies: No Known Drug Allergies (Unverified , 11/04/18) Home Medications Albuterol Sulfate 1 Puff Puff, 2 PUFF IH Q4H PRN for COUGH 1 PUFF = 90 MCG Prescribed by: SHAILESH HURTADO on 10/28/19 0501 Benzonatate 100 Mg Capsule, 100 MG PO Q6H PRN for COUGH Prescribed by: SHAILESH HURTADO on 10/28/19 0501 Patient Home Medication List Home Medication List Reviewed: Yes Review of Systems Review of Systems Constitutional: No chills, No diaphoresis, No fever; malaise EENTM: ear pain (left); No ear discharge Respiratory: cough, phlegm, short of breath; No wheezing Cardiovascular: No chest pain, No Hx of Intervention, No palpitations Gastrointestinal: No abdominal pain, No constipation, No diarrhea Genitourinary: No discharge, No dysuria Musculoskeletal: No back pain, No joint pain Skin: No pruritus, No rash All Other Systems Reviewed Negative Unless Noted: Yes Past Guggbxd-Attizi-Faiqup Hx Patient Social History Alcohol Use: Denies Use Recreational Drug Use: No Smoking Status: Current Everyday Smoker Type Used: Cigarettes (1.5 ppd) 2nd Hand Smoke Exposure: Yes Recent Foreign Travel: No Contact w/Someone Who Travel: No Recent Hopitalizations: No Seasonal Allergies Seasonal Allergies: No Past Medical History Surgeries: Yes (DNC) Section Respiratory: No Currently Using CPAP: No Currently Using BIPAP: No Cardiac: No Neurological: No Genitourinary: No Gastrointestinal: No Musculoskeletal: No Endocrine: Yes Diabetes, Insulin dep HEENT: Yes (Meniere disease) Loss of Vision: Denies Hearing Impairment: Denies Cancer: No Psychosocial: Yes (OCD) Anxiety Integumentary: Yes Pruritis, Recent Skin Changes Blood Disorders: No Family Medical History Heart Disease, Diabetes Physical Exam Vital Signs - First Documented 10/28/19 03:52 Temp 36.6 Pulse 87 Resp 16 B/P (MAP) 114/70 (85) Pulse Ox 97 O2 Delivery Room Air Capillary Refill : Height: 5'3.00" Weight: 174lbs. oz. 78.057869jv; 28.12 BMI Method:Stated General Appearance: WD/WN, no apparent distress Eyes: Bilateral Eye Normal Inspection, Bilateral Eye PERRL, Bilateral Eye EOMI HEENT: PERRL/EOMI, pharynx normal, pharyngeal erythema (mild); No tonsillar exudate; other (left TM opaque, light with mild injection, right TM with opaque and mild injectionsignificant erythema) Neck: non-tender, full range of motion, supple, normal inspection Respiratory: chest non-tender, lungs clear, normal breath sounds, no respiratory distress, no accessory muscle use Cardiovascular: normal peripheral pulses, regular rate, rhythm Gastrointestinal: normal bowel sounds, non tender, soft Neurologic/Psychiatric: alert, normal mood/affect, oriented x 3 Skin: normal color, warm/dry Progress/Results/Core Measures Suspected Sepsis SIRS Temperature: Pulse: Respiratory Rate: Laboratory Tests 10/28/19 04:13: White Blood Count 10.0 Blood Pressure / Mean: Laboratory Tests 10/28/19 04:13: Creatinine 0.98, Platelet Count 205, Total Bilirubin 0.3 Results/Orders Lab Results Laboratory Tests Test 10/28/19 04:11 10/28/19 04:13 Range/Units Group A Streptococcus Screen NEGATIVE NEGATIVE White Blood Count 10.0 4.3-11.0 10^3/uL Red Blood Count 4.59 4.35-5.85 10^6/uL Hemoglobin 14.4 11.5-16.0 G/DL Hematocrit 42 35-52 % Mean Corpuscular Volume 91 80-99 FL Mean Corpuscular Hemoglobin 31 25-34 PG Mean Corpuscular Hemoglobin Concent 35 32-36 G/DL Red Cell Distribution Width 14.7 H 10.0-14.5 % Platelet Count 205 130-400 10^3/uL Mean Platelet Volume 12.2 H 7.4-10.4 FL Neutrophils (%) (Auto) 65 42-75 % Lymphocytes (%) (Auto) 26 12-44 % Monocytes (%) (Auto) 8 0-12 % Eosinophils (%) (Auto) 1 0-10 % Basophils (%) (Auto) 0 0-10 % Neutrophils # (Auto) 6.5 1.8-7.8 X 10^3 Lymphocytes # (Auto) 2.6 1.0-4.0 X 10^3 Monocytes # (Auto) 0.8 0.0-1.0 X 10^3 Eosinophils # (Auto) 0.1 0.0-0.3 10^3/uL Basophils # (Auto) 0.0 0.0-0.1 10^3/uL Sodium Level 134 L 135-145 MMOL/L Potassium Level 4.4 3.6-5.0 MMOL/L Chloride Level 98 98-107 MMOL/L Carbon Dioxide Level 25 21-32 MMOL/L Anion Gap 11 5-14 MMOL/L Blood Urea Nitrogen 11 7-18 MG/DL Creatinine 0.98 0.60-1.30 MG/DL Estimat Glomerular Filtration Rate 60 BUN/Creatinine Ratio 11 Glucose Level 294 H 70-105 MG/DL Calcium Level 9.1 8.5-10.1 MG/DL Corrected Calcium 9.1 8.5-10.1 MG/DL Total Bilirubin 0.3 0.1-1.0 MG/DL Aspartate Amino Transf (AST/SGOT) 13 5-34 U/L Alanine Aminotransferase (ALT/SGPT) 8 0-55 U/L Alkaline Phosphatase 95 40-136 U/L C-Reactive Protein High Sensitivity 0.38 0.00-0.50 MG/DL Total Protein 7.7 6.4-8.2 GM/DL Albumin 4.0 3.2-4.5 GM/DL Micro Results Microbiology 10/28/19 Influenza Types A,B Antigen (GENARO) - Final, Complete My Orders Orders - SHAILESH HURTADO Cbc With Automated Diff (10/28/19 03:59) Hs C Reactive Protein (10/28/19 03:59) Comprehensive Metabolic Panel (10/28/19 03:59) Chest Pa/Lat (2 View) (10/28/19 03:59) Rapid Strep A Screen (10/28/19 03:59) Influenza A And B Antigens (10/28/19 03:59) Vital Signs/I&O 10/28/19 10/28/19 03:52 03:52 Temp 36.6 Pulse 87 Resp 16 B/P (MAP) 114/70 (85) Pulse Ox 97 O2 Delivery Room Air Capillary Refill : Progress Note : Time: 04:11 Progress Note Patient has clear breath sounds. She has some opaque, scarred, injected eardrums but she is already on antibiotics. If she is on Augmentin then this would be sufficient. Would also make strep throat unlikely since she's complaining of sore throat we'll obtain a swab for culture. We'll get a influenza swab. She's had no fevers. We'll obtain a 2 view chest x-ray. Offered a breathing treatment but she has declined and we agree that she does not have any adventitious breath sounds. We'll check some labs to include a CRP. Diagnostic Imaging Diagonstic Imaging: Xray Plain Films/CT/US/NM/MRI: chest (2v) Comments No acute cardiopulmonary processes noted on today's chest x-ray. Reviewed: Reviewed by Me Departure Impression Primary Impression: Bronchitis Additional Impression: Upper respiratory infection Qualified Codes: J06.9 - Acute upper respiratory infection, unspecified Disposition: HOME, SELF-CARE Condition: Stable Departure-Patient Inst. Decision time for Depature: 04:58 Referrals: NATALIE DUVALL MD (PCP/Family) Primary Care Physician Patient Instructions: Acute Bronchitis, Adult (DC) Add. Discharge Instructions: Humidifiers, vapor rubs such as Vicks or Mentholatum. Provera 2 puffs every 4 hours as needed for coughing fits. Tessalon Perles 1 capsule every 6 hours as needed for coughing. Finish out the antibiotics as prescribed. Follow-up with primary care if not seeing improvement in the next 1-2 weeks. Scripts Albuterol Sulfate (PROAIR HFA) 1 Puff Puff 2 PUFF IH Q4H PRN for COUGH, #1 EA 0 Refills 1 PUFF = 90 MCG Prov: SHAILESH HURTADO 10/28/19 Benzonatate (Tessalon Perle) 100 Mg Capsule 100 MG PO Q6H PRN for COUGH, #30 CAP 0 Refills Prov: SHAILESH HURTADO 10/28/19 SHAILESH HURTADO Oct 28, 2019 04:06 POS
[2019-10-28 04:20] LABS: BASOPHILS % (AUTO) 0 % (0-10); EOSINOPHILS # (AUTO) 0.1 10^3/uL (0.0-0.3); EOSINOPHILS % (AUTO) 1 % (0-10); HEMATOCRIT 42 % (35-52); HEMOGLOBIN 14.4 G/DL (11.5-16.0); LYMPHOCYTES # (AUTO) 2.6 X 10^3 (1.0-4.0); LYMPHOCYTES % (AUTO) 26 % (12-44); MEAN CORPUSCULAR HEMOGLOBIN 31 PG (25-34); MEAN CORPUSCULAR HGB CONC 35 G/DL (32-36); MEAN CORPUSCULAR VOLUME 91 FL (80-99); MEAN PLATELET VOLUME 12.2 FL (7.4-10.4); MONOCYTES # (AUTO) 0.8 X 10^3 (0.0-1.0); MONOCYTES % (AUTO) 8 % (0-12); NEUTROPHILS # (AUTO) 6.5 X 10^3 (1.8-7.8); NEUTROPHILS % (AUTO) 65 % (42-75); PLATELET COUNT 205 10^3/uL (130-400); RED CELL DISTRIBUTION WIDTH 14.7 % (10.0-14.5)
[2019-10-28] MEDS ORDERED: LEVO75TA6 (04:27)
[2019-10-28] MEDS ORDERED: SYRI1DIS (04:27)
[2019-10-28] MEDS ORDERED: BLOO-1521 (04:27)
[2019-10-28] MEDS ORDERED: ONDA8TAB12 (04:27)
[2019-10-28] MEDS ORDERED: INSU100I10 (04:27)
[2019-10-28] MEDS ORDERED: INSU100V (04:27)
[2019-10-28 04:43] LABS: BILIRUBIN,TOTAL 0.3 MG/DL (0.1-1.0); CALCIUM 9.1 MG/DL (8.5-10.1); CREATININE SERUM 0.98 MG/DL (0.60-1.30); POTASSIUM 4.4 MMOL/L (3.6-5.0); TOTAL PROTEIN 7.7 GM/DL (6.4-8.2)
[2019-10-28] MEDS ORDERED: BENZ-13 PO (05:01)
[2019-10-28] MEDS ORDERED: RT-ALBUINH IH (05:01)
[2019-10-28 05:44] VITALS: BP 109/61
--- NOTE | 2019-10-28 07:45 | Diagnostic Imaging Report ---
EXAMINATION: CHEST (PA AND LATERAL) CLINICAL INDICATION: 48-year-old female, productive cough for one week. COMPARISON: None. FINDINGS: Heart size and mediastinal contours are unremarkable. There is no identified pneumothorax. There is no pleural effusion. There is no identified focal airspace consolidation. IMPRESSION: No identified acute cardiopulmonary abnormality. Dictated by: Dictated on workstation # [id number]
--- OUTSIDE RECORDS SUMMARY | 2019-11-23 09:16 | XMS REPORT | Continuity of Care Document ---
Author Organization Unknown Address Unknown Phone Unavailable Allergies Active Description Code Type Severity Reaction Onset Reported/Identified Relationship to Patient Clinical Status Yes No Known Allergies Drug N/A N/A Yes No Known Drug Allergies [id number] Drug Allergy Unknown N/A 11/04/2018 Medications There is no data. Problems Date Dx Coded Attending Type Code Diagnosis Diagnosed By 07/18/2018 LORRAINE MILIAN MD, Ot E11.65 TYPE 2 DIABETES MELLITUS WITH HYPERGLYCE 07/18/2018 LORRAINE MILIAN MD Ot F17.200 NICOTINE DEPENDENCE, UNSPECIFIED, UNCOMP 07/18/2018 LORRAINE MILIAN MD Ot F41.9 ANXIETY DISORDER, UNSPECIFIED 07/18/2018 LORRAINE MILIAN MD, Ot F42.9 OBSESSIVE-COMPULSIVE DISORDER, UNSPECIFI 07/18/2018 LORRAINE [...] F41.9 ANXIETY DISORDER, UNSPECIFIED 07/24/2018 LORRAINE MILIAN MD Ot F42.9 OBSESSIVE-COMPULSIVE DISORDER, UNSPECIFI 07/24/2018 LORRAINE MILIAN MD Ot L02.211 CUTANEOUS ABSCESS OF ABDOMINAL WALL 07/24/2018 LORRAINE MILIAN MD Ot Z82.49 FAMILY HX OF ISCHEM HEART DIS AND OTH DI 07/27/2018 BERNBRENT WILSON Ot L02.214 CUTANEOUS ABSCESS OF GROIN 11/04/2018 SHAILESH HURTADO MD Ot E11. 9 TYPE 2 DIABETES MELLITUS WITHOUT COMPLIC 11/04/2018 SHAILESH HURTADO MD Ot F41. 9 ANXIETY DISORDER, UNSPECIFIED 11/04/2018 SHAILESH HURTADO MD Ot F42. 9 OBSESSIVE-COMPULSIVE DISORDER, UNSPECIFI 11/04/2018 GENESIS CRAWFORD, SHAILESH Park Ot M25.461 EFFUSION, RIGHT KNEE 11/04/2018 GENESIS CRAWFORD, SHAILESH Park Ot M25.561 PAIN IN RIGHT KNEE 11/04/2018 SHAILESH HURTADO MD Ot W10.8XXA FALL (ON) (FROM) OTHER STAIRS AND STEPS, 11/04/2018 SHAILESH HURTADO MD Ot Z77. 22 CNTCT W AND EXPSR TO ENVIRON TOBACCO SMO 11/04/2018 SHAILESH HURTADO MD Ot Z82. 49 FAMILY HX OF ISCHEM HEART DIS AND OTH DI 11/04/2018 SHAILESH HURTADO MD Ot Z98.890 OTHER SPECIFIED POSTPROCEDURAL STATES 01/30/2019 JESSY BOYD APRN Ot E11 .9 TYPE 2 DIABETES MELLITUS WITHOUT COMPLIC 01/30/2019 JESSY BOYD APRN Ot F41 .9 ANXIETY DISORDER, UNSPECIFIED 01/30/2019 JESSY BOYD APRN Ot F42 .9 OBSESSIVE-COMPULSIVE DISORDER, UNSPECIFI 01/30/2019 JESSY BOYD APRN Ot M54 .5 LOW BACK PAIN 01/30/2019 JESSY BOYD APRN Ot Z77.22 CNTCT W AND EXPSR TO ENVIRON TOBACCO SMO 01/30/2019 JESSY BOYD APRN Ot Z82.49 FAMILY HX OF ISCHEM HEART DIS AND OTH DI 01/30/2019 JESSY BOYD APRN Ot Z98.890 OTHER SPECIFIED POSTPROCEDURAL STATES 02/01/2019 JESSY BOYD APRN Ot E11 .9 TYPE 2 DIABETES MELLITUS WITHOUT COMPLIC 02/01/2019 JESSY BOYD APRN Ot F41 .9 ANXIETY DISORDER, UNSPECIFIED 02/01/2019 JESSY BOYD APRN Ot F42 .9 OBSESSIVE-COMPULSIVE DISORDER, UNSPECIFI 02/01/2019 JESSY BOYD APRN Ot M54 .5 LOW BACK PAIN 02/01/2019 JESSY BOYD APRN Ot Z77.22 CNTCT W AND EXPSR TO ENVIRON TOBACCO SMO 02/01/2019 JESSY BOYD APRN Ot Z82.49 FAMILY HX OF ISCHEM HEART DIS AND OTH DI 02/01/2019 JESSY BOYD AUTOMOTIVE COLLISION ESTIMATOR Ot Z98.890 OTHER SPECIFIED POSTPROCEDURAL STATES 07/10/2019 SUSHANT CRAWFORD, NATALIE Hogue Ot E04.9 NONTOXIC GOITER, UNSPECIFIED 10/15/2019 SUSHANT CRAWFORD, NATALIE Hogue Ot E04.9 NONTOXIC GOITER, UNSPECIFIED 10/28/2019 SUSHANT CRAWFORD, NATALIE Hogue Ot E04.9 NONTOXIC GOITER, UNSPECIFIED 10/28/2019 GENESIS CRAWFORD, SHAILESH J Ot E11. 9 TYPE 2 DIABETES MELLITUS WITHOUT COMPLIC 10/28/2019 GENESIS CRAWFORD, SHAILESH J Ot F17.210 NICOTINE DEPENDENCE, CIGARETTES, UNCOMPL 10/28/2019 GENESIS CRAWFORD SHAILESH J Ot F41. 9 ANXIETY DISORDER, UNSPECIFIED 10/28/2019 GENESIS CRAWFORD, SHAILESH J Ot F42. 9 OBSESSIVE-COMPULSIVE DISORDER, UNSPECIFI 10/28/2019 GENESIS CRAWFORD, SHAILESH J Ot J06. 9 ACUTE UPPER RESPIRATORY INFECTION, UNSPE 10/28/2019 GENESIS CRAWFORD, SHAILESH J Ot J40 BRONCHITIS, NOT SPECIFIED ACUTE OR CH 10/28/2019 GENESIS CRAWFORD, SHAILESH J Ot R05 COUGH 10/28/2019 GENESIS CRAWFORD, SHAILESH J Ot Z82. 49 FAMILY HX OF ISCHEM HEART DIS AND OTH DI 10/28/2019 SUSHANT CRAWFORD, NATALIE [place]ogue Ot E04.9 NONTOXIC GOITER, UNSPECIFIED 11/01/2019 GENESIS CRAWFORD, SHAILESH J Ot E11. 9 TYPE 2 DIABETES MELLITUS WITHOUT COMPLIC 11/01/2019 GENESIS CRAWFORD, SHAILESH J Ot F17.210 NICOTINE DEPENDENCE, CIGARETTES, UNCOMPL 11/01/2019 GENESIS CRAWFORD SHAILESH J Ot F41. 9 ANXIETY DISORDER, UNSPECIFIED 11/01/2019 GENESIS CRAWFORD, SHAILESH J Ot F42. 9 OBSESSIVE-COMPULSIVE DISORDER, UNSPECIFI 11/01/2019 GENESIS CRAWFORD, SHAILESH J Ot J06. 9 ACUTE UPPER RESPIRATORY INFECTION, UNSPE 11/01/2019 GENESIS CRAWFORD, SHAILESH J Ot J40 BRONCHITIS, NOT SPECIFIED ACUTE OR CH 11/01/2019 GENESIS CRAWFORD SHAILESH J Ot R05 COUGH 11/01/2019 GENESIS CRAWFORD, SHAILESH J Ot Z82. 49 FAMILY HX OF ISCHEM HEART DIS AND OTH DI Procedures There is no data. Results Test Result Range BMP - 03/11/13 11:35 Osmo Calculated CANCEL-INCORRECT Sodium CANCEL-INCORRECT Potassium CANCEL-INCORRECT Calcium CANCEL-INCORRECT BUN CANCEL-INCORRECT Chloride CANCEL-INCORRECT Anion GAP CANCEL-INCORRECT Bun/Creat CANCEL-INCORRECT CO2 CANCEL-INCORRECT Glucose CANCEL-INCORRECT Creatinine CANCEL-INCORRECT Complete blood count (CBC) with automate d white blood cell (WBC) differential - 07/18/18 06:50 Blood leukocytes automated count (number/volume) 9.6 10*3/uL 4.3-11.0 Blood erythrocytes automated count (number/volume) 4.59 10*6/uL 4.35-5.85 Venous blood hemoglobin measurement (mass/volume) 14.4 g/dL 11.5-16.0 Blood hematocrit (volume fraction) 42 % 35-52 Automated erythrocyte mean corpuscular volume 90 [ foz_us] 80-99 Automated erythrocyte mean corpuscular h emoglobin (mass per erythrocyte) 31 pg 25-34 Automated erythrocyte mean corpuscular h emoglobin concentration measurement (mass/volume) 35 g/dL 32-36 Automated erythrocyte distribution width ratio 14. 3 % 10.0- 14.5 Automated blood platelet count (count/volume) 221 10*3/uL [...] 10*3 1.0-4.0 Blood monocytes automated count (number/volume) 1. 0 10*3 0.0-1.0 Automated eosinophil count 0.1 10*3/uL 0 .0-0.3 Automated blood basophil count (count/volume) 0.0 10*3/uL 0.0-0.1 Comprehensive metabolic panel - 07/18/18 06:50 Serum or plasma sodium measurement (moles/volume) 134 mmol/L 135-145 Serum or plasma potassium measurement (moles/volume) 4.1 mmol/L 3.6-5.0 Serum or plasma chloride measurement (moles/volume) 99 mmol/L 98-107 Carbon dioxide 27 mmol/L 21-32 Serum or plasma anion gap determination (moles/volume) 8 mmol/L 5-14 Serum or plasma urea nitrogen measurement (mass/volume ) 8 mg/dL 7-18 Serum or plasma creatinine measurement (mass/volume) 0.80 mg/dL 0.60-1.30 Serum or plasma urea nitrogen/creatinine mass ratio 10 NRG Serum or plasma creatinine measurement w ith calculation of estimated glomerular filtration rate > NRG Serum or plasma glucose measurement (mass/volume) 301 mg/dL 70-105 Serum or plasma calcium measurement (mass/volume) 9.2 mg/dL 8.5-10.1 Serum or plasma total bilirubin measurement (mass/volu me) 0.5 mg/dL 0.1-1.0 Serum or plasma alkaline phosphatase iris surement (enzymatic activity/volume) 105 U/L 40-136 Serum or plasma aspartate aminotransfera se measurement (enzymatic activity/volume) 12 U/L 5-34 Serum or plasma alanine aminotransferase measurement (enzymatic activity/volume) 9 U/L 0-55 Serum or plasma protein measurement (mass/volume) 7.6 g/dL 6.4-8.2 Serum or plasma albumin measurement (mass/volume) 3.9 g/dL 3.2-4.5 CALCIUM CORRECTED 9.3 mg/dL 8.5-10.1 Blood lactic acid measurement (moles/vol ume) - 07/18/18 07:02 Blood lactic acid measurement (moles/volume) 0.92 mmol/L 0.50-2.00 Bacterial blood culture - 07/18/18 07:02 Bacterial blood culture NG NRG Capillary blood glucose measurement by g lucometer (mass/volume) - 07/18/18 07:09 Capillary blood glucose measurement by glucometer (mas s/volume) 284 mg/dL 70-110 Bacterial blood culture - 07/18/18 07:10 Bacterial blood culture NG NRG Gram stain microscopy - 07/18/18 09:38 Gram stain microscopy Many Gram positive monroe ci of varying morphologies NRG Bacteria identification in wound by cult ure - 07/18/18 09:38 Bacteria identification in wound by culture SEE CO MMEN NRG FREE TEXT EXTERNAL METHICILLIN-SENSITIVE NRG QUANTITY OF GROWTH . NRG FREE TEXT ENTRY 2 RML SENSITIVITY REPORTED 07/21/18 12:05 NRG RML Sensitivity Panel - 07/18/18 09:38 Oxacillin susceptibility test by minimum inhibitory co ncentration 1 NRG Clindamycin susceptibility test by minimum inhibitory concentration <= NRG Erythromycin susceptibility test by minimum inhibitory concentration > NRG Trimethoprim/sulfamethoxazole susceptibi lity test by minimum inhibitoryconcentration S NRG Vancomycin susceptibility test by minimum inhibitory c oncentration 1 NRG Levofloxacin susceptibility test by minimum inhibitory concentration 4 NRG Rifampin susceptibility test by minimum inhibitory con centration <= NRG Cefazolin susceptibility test by minimum inhibitory co ncentration <= NRG Linezolid susceptibility test by minimum inhibitory co ncentration 2 NRG Penicillin G susceptibility test by minimum inhibitory concentration > NRG Minocycline susc GENARO <= NRG Complete urinalysis with reflex to cultu re - 01/30/19 21:34 Urine color determination YELLOW NRG Urine clarity determination SLIGHTLY CLOUDY NRG Urine pH measurement by test strip 6 5-9 Specific gravity of urine by test strip 1.020 1.016-1.022 Urine protein assay by test strip, semi-quantitative 1+ NEGATIVE Urine glucose detection by automated test strip NE GATIVE NEGATIVE Erythrocytes detection in urine sediment by light micr oscopy NEGATIVE NEGATIVE Urine ketones detection by automated test strip NE GATIVE NEGATIVE Urine nitrite detection by test strip NEGATIVE NEGATIVE Urine total bilirubin detection by test strip NEGA TIVE NEGATIVE Urine urobilinogen measurement by automated test strip (mass/volume) 1 mg/dL NORMAL Urine leukocyte esterase detection by dipstick 1+ NEGATIVE Automated urine sediment erythrocyte cou nt by microscopy (number/high power field) NONE NRG Automated urine sediment leukocyte count by microscopy (number/high power field) [HPF] NRG Bacteria detection in urine sediment by light microsco py TRACE NRG Squamous epithelial cells detection in u rine sediment by light microscopy 2-5 NRG Crystals detection in urine sediment by light microsco py NONE NRG Casts detection in urine sediment by light microscopy NONE NRG Mucus detection in urine sediment by light microscopy LARGE NRG Complete urinalysis with reflex to culture NO NRG Streptococcus pyogenes antigen detection - 10/28/19 04:11 Streptococcus pyogenes antigen detection NEGATIVE NEGATIVE Influenza virus A and B antigen detectio n - 10/28/19 04:11 FLU RESULT NEGATIVE FOR INFLUENZA A AND B ANTIGENS BY IA NRG Bacterial throat culture - 10/28/19 04:1 1 Bacterial throat culture [facility] Complete blood count (CBC) with automate d white blood cell (WBC) differential - 10/28/19 04:13 Blood leukocytes automated count (number/volume) 10.0 10*3/uL 4.3-11.0 Blood erythrocytes automated count (number/volume) 4.59 10*6/uL 4.35-5.85 Venous blood hemoglobin measurement (mass/volume) 14.4 g/dL 11.5-16.0 Blood hematocrit (volume fraction) 42 % 35-52 Automated erythrocyte mean corpuscular volume 91 [ foz_us] 80-99 Automated erythrocyte mean corpuscular h emoglobin (mass per erythrocyte) 31 pg 25-34 Automated erythrocyte mean corpuscular h emoglobin concentration measurement (mass/volume) 35 g/dL 32-36 Automated erythrocyte distribution width ratio 14. 7 % 10.0- 14.5 Automated blood platelet count (count/volume) 205 10*3/uL 130-400 Automated blood platelet mean volume measurement 12.2 [foz_us] 7.4-10.4 Automated blood neutrophils/100 leukocytes 65 % 42-75 Automated blood lymphocytes/100 leukocytes 26 % 12-44 Blood monocytes/100 leukocytes 8 % 0-12 Automated blood eosinophils/100 leukocytes 1 % 0-10 Automated blood basophils/100 leukocytes 0 % 0-10 Blood neutrophils automated count (number/volume) 6.5 10*3 1.8-7.8 Blood lymphocytes automated count (number/volume) 2.6 10*3 1.0-4.0 Blood monocytes automated count (number/volume) 0. 8 10*3 0.0-1.0 Automated eosinophil count 0.1 10*3/uL 0 .0-0.3 Automated blood basophil count (count/volume) 0.0 10*3/uL 0.0-0.1 Comprehensive metabolic panel - 10/28/19 04:13 Serum or plasma sodium measurement (moles/volume) 134 mmol/L 135-145 Serum or plasma potassium measurement (moles/volume) 4.4 mmol/L 3.6-5.0 Serum or plasma chloride measurement (moles/volume) 98 mmol/L 98-107 Carbon dioxide 25 mmol/L 21-32 Serum or plasma anion gap determination (moles/volume) 11 mmol/L 5-14 Serum or plasma urea nitrogen measurement (mass/volume ) 11 mg/dL 7-18 Serum or plasma creatinine measurement (mass/volume) 0.98 mg/dL 0.60-1.30 Serum or plasma urea nitrogen/creatinine mass ratio 11 NRG Serum or plasma creatinine measurement w ith calculation of estimated glomerular filtration rate 60 NRG Serum or plasma glucose measurement (mass/volume) 294 mg/dL 70-105 Serum or plasma calcium measurement (mass/volume) 9.1 mg/dL 8.5-10.1 Serum or plasma total bilirubin measurement (mass/volu me) 0.3 mg/dL 0.1-1.0 Serum or plasma alkaline phosphatase iris surement (enzymatic activity/volume) 95 U/L 40-136 Serum or plasma aspartate aminotransfera se measurement (enzymatic activity/volume) 13 U/L 5-34 Serum or plasma alanine aminotransferase measurement (enzymatic activity/volume) 8 U/L 0-55 Serum or plasma protein measurement (mass/volume) 7.7 g/dL 6.4-8.2 Serum or plasma albumin measurement (mass/volume) 4.0 g/dL 3.2-4.5 CALCIUM CORRECTED 9.1 mg/dL 8.5-10.1 Serum or plasma C reactive protein measu rement (mass/volume) - 10/28/19 04:13 Serum or plasma C reactive protein measurement (mass/v olume) 0.38 mg/dL 0.00-0.50 Encounters ACCT No. Visit Date/Time Discharge Status Pt. Type Provider Facility Loc./Unit Complaint [id number] 12/26/2018 09:14:00 12/26/2018 23:59: [id number] 11:05:00 03/11/2013 11:05 :00 MARTINEZ Bansal MD [facility] DAYSTA [id number] 07/04/2018 15:59:00 Document Registration [id number] 12/26/2017 10:04:11 ACT Unknown [id number] 04/13/2016 14:49:00 04/13/2016 14:50 :00 DIS Emergency KINZA NAPIER [facility] EMR [id number] 10/28/2019 03:47:00 019 05:43:00 DIS Emergency GENESIS CRAWFORD, SHAILESH Park [facility] ER COUGH/SORE THROAT/EAR A SHAYLEE FEVER [id number] 07/06/2019 14:49:00 23:59:59 [facility] Outpatient SUSHANT CRAWFORD, NATALIE mancuso [facility] RAD GOITER [id number] 01/30/2019 21:12:00 019 22:20:00 DIS Emergency JESSY BOYD APRN [facility] ER PAIN IN LOWER BACK [id number] 11/04/2018 04:30:00 018 06:08:00 DIS Emergency SHAILESH HURTADO MD [facility] ER FALL-RT KNEE PAIN [id number] 07/21/2018 16:08:00 018 16:46:00 DIS Emergency BRENT SOTOMAYOR [facility] ER WOUND CARE [id number] 07/18/2018 06:36:00 018 10:15:00 DIS Emergency RUKHSANA CRAWFORD, LORRAINE Jimenez [facility] ER BOIL ON LEFT LE G, FALL ON 07-11-18
== END 2019-10-28 05:43 | disposition home or self-care (01) ==
LOC: EDUNIT# 03:45 → ER 03:47
DX: J40 Bronchitis, not specified as acute or chronic (principal); J06.9 Acute upper respiratory infection, unspecified; E11.9 Type 2 diabetes mellitus without complications; F41.9 Anxiety disorder, unspecified; F42.9 Obsessive-compulsive disorder, unspecified; F17.210 Nicotine dependence, cigarettes, uncomplicated; Z82.49 Family history of ischemic heart disease and other diseases of the circulatory system
CPT/HCPCS: 36415; 71046; 80053; 85025; 86141; 87430; 87804

== ENCOUNTER 2021-05-08 21:10 | Day surgery (SDC) | payer MEDICAID ==
[~2021-05-08] VITALS: Ht 160 cm; Wt 87.0 kg
[~2021-05-08 21:10] MED LIST changes: +BENZ-13 PO; +BLOO-1521; +INSU100I10; +INSU100V; +LEVO75TA6; +ONDA8TAB15; +RT-ALBUINH IH; +SYRI1DIS
[2021-05-08] MEDS ORDERED: NS IV 1000 ML 1,000 ML IV SCH (22:15)
[2021-05-08 22:16] LABS: BASOPHILS % (AUTO) 0 % (0-10); EOSINOPHILS # (AUTO) 0.1 10^3/uL (0.0-0.3); EOSINOPHILS % (AUTO) 1 % (0-10); HEMATOCRIT 44 % (35-52); HEMOGLOBIN 14.6 g/dL (11.5-16.0); LYMPHOCYTES # (AUTO) 2.9 10^3/uL (1.0-4.0); LYMPHOCYTES % (AUTO) 33 % (12-44); MEAN CORPUSCULAR HEMOGLOBIN 31 pg (25-34); MEAN CORPUSCULAR HGB CONC 34 g/dL (32-36); MEAN CORPUSCULAR VOLUME 93 fL (80-99); MEAN PLATELET VOLUME 12.6 fL (9.0-12.2); MONOCYTES # (AUTO) 0.7 10^3/uL (0.0-1.0); MONOCYTES % (AUTO) 8 % (0-12); NEUTROPHILS # (AUTO) 5.2 10^3/uL (1.8-7.8); NEUTROPHILS % (AUTO) 58 % (42-75); PLATELET COUNT 214 10^3/uL (130-400); WHITE BLOOD COUNT 8.9 10^3/uL (4.3-11.0)
[2021-05-08 22:19] LABS: BILIRUBIN,URINE NEGATIVE (NEGATIVE); CLARITY,URINE CLEAR; COLOR,URINE YELLOW; GLUCOSE, URINE (UA) 1+ (NEGATIVE); KETONES,URINE NEGATIVE (NEGATIVE); LEUKOCYTE ESTERASE ,URINE NEGATIVE (NEGATIVE); NITRITE,URINE NEGATIVE (NEGATIVE); PH,URINE 6.5 (5-9); PROTEIN,URINE NEGATIVE (NEGATIVE)
[2021-05-08 22:29] LABS: BACTERIA,URINE TRACE /HPF; SQUAMOUS EPITHELIAL CELL,UR 0-2 /HPF
[2021-05-08 22:39] LABS: ALANINE AMINOTRANSFERASE 13 U/L (0-55); ALBUMIN 4.1 GM/DL (3.2-4.5); ALKALINE PHOSPHATASE 90 U/L (40-136); AMYLASE 43 U/L (25-125); BILIRUBIN,TOTAL 0.5 MG/DL (0.1-1.0); BUN/CREATININE RATIO 13; CALCIUM 9.5 MG/DL (8.5-10.1); CARBON DIOXIDE 29 MMOL/L (21-32); CHLORIDE 100 MMOL/L (98-107); CREATININE SERUM 0.84 MG/DL (0.60-1.30); GFR ESTIMATED > 60; GLUCOSE 229 MG/DL (70-105); LIPASE 15 U/L (8-78); SODIUM 136 MMOL/L (135-145); TOTAL PROTEIN 8.3 GM/DL (6.4-8.2)
[2021-05-08] MEDS ORDERED: HOLD METFORMIN - RECEIVED CONTRAST 20 ML VIAL IV SCH (23:45)
[2021-05-08] MEDS ORDERED: NS 100 ML (IVPB) BAG IV ONE (23:45)
[2021-05-08] MEDS ORDERED: IOHEXOL 350 MG/ML 100 ML (OMNIPAQUE 350) VIAL IV ONE (23:45)
[2021-05-08] MEDS ORDERED: CATHETER FLUSH 10 ML SYR IV PRN (23:45)
[2021-05-09] VITALS (9 sets, daily range): BP systolic 90–104; BP diastolic 52–78
[2021-05-09] MEDS ORDERED: PIPERACILLIN SODIUM/TAZOBACTAM 4.5 GM in NS (IVPB) 100 ML IV ONE ×2 (00:45→09:15)
[2021-05-09] MEDS ORDERED: LORazepam INJ 2 MG/ML (ATIVAN) VIAL IVP ONE (00:45)
--- NOTE | 2021-05-09 00:59 | ED GI ---
General Chief Complaint: Abdominal/GI Problems Stated Complaint: ABD PAIN / HEADACHE / DIARRHEA / DIZZY Nursing Triage Note: PT AMBULATES TO ED FOR ABD PAIN, NAUSEA. 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 Sepsis Screen: No Definite Risk Source of Information: Patient (DALE ROBERT DO) History of Present Illness Date Seen by Provider: May 08, 2021 Time Seen by Provider: 22:00 Initial Comments PT ARRIVES VIA POV FORM HOME PT "I THINK I'M DEHYDRATED" PT C/O NAUSEA, NO VOMITING--BEGAN TODAY HAS HAD A LITTLE BIT OF DIARRHEA TODAY C/O MID ABDOMINAL PAIN--BEGAN TODAY C/O DECREASED APPETITE--NO SIGNIFICANT FOOD INTAKE TODAY AND ONLY " A LITTLE BIT" OF GATORADE TO DRINK TODAY NO FEVER/SWEATS/CHILLS C/O DIZZINESS C/O URINARY FREQUENCY STATES "I FEEL LIKE CRAP" NO COUGH/CONGESTION OR URI SYMPTOMS NO CHEST PAIN NO SHORTNESS OF BREATH NO HEADACHE NO BODY ACHES STATES SHE HAS BEEN OUT IN THE HEAT ALOT SINCE LAST WEDNESDAY COOKED IN A HOT KITCHEN ON WEDNESDAY FOR A WEDDING HAD WEDDING ON WEDNESDAY WENT TO THE [place] ALL DAY ON WEDNESDAY 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 PT IS INSULIN DEPENDENT DIABETIC--GLUCOSE WAS 260 PRIOR TO ARRIVAL, HAS NOT HAD HER LANTUS THIS AFTERNOON OR ANY OF HER PM MEDICATIONS. PCP: NANCY OWEN (DALE ROBERT DO) Allergies and Home Medications Allergies Coded Allergies: No Known Drug Allergies (Unverified , 11/04/18) Home Medications Albuterol Sulfate 1 Puff Puff, 2 PUFF IH Q4H PRN for COUGH 1 PUFF = 90 MCG Prescribed by: SHAILESH HURTADO on 10/28/19 0501 Benzonatate 100 Mg Capsule, 100 MG PO Q6H PRN for COUGH Prescribed by: SHAILESH HURTADO on 10/28/19 0501 Docusate Sodium 100 Mg Capsule, 100 MG PO BID Prescribed by: SSUAN TORREZ on 05/09/21 1035 Hydrocodone/Acetaminophen 1 Each Tablet, 1 EACH PO Q4H PRN for PAIN-MODERATE (5- 7) Prescribed by: SUSAN TORREZ on 05/09/21 1036 Ibuprofen 800 Mg Tablet, 800 MG PO Q8H PRN for PAIN-MILD Prescribed by: SUSAN TORREZ on 05/09/21 1035 Patient Home Medication List Home Medication List Reviewed: Yes (GRACIELA CHANCE MD) Review of Systems Review of Systems Constitutional: see HPI, dizziness EENTM: No Symptoms Reported Respiratory: No Symptoms Reported; Denies Cough, Denies Shortness of Air Cardiovascular: No Symptoms Reported; Denies Chest Pain, Denies Edema, Denies Irregular Heart Rate, Denies Palpitations, Denies Syncope Gastrointestinal: See HPI, Abdominal Pain; Denies Constipated, Denies Diarrhea; Nausea, Poor Appetite; Denies Vomiting Genitourinary: See HPI; Denies Burning; Frequency; Denies Flank Pain Musculoskeletal: no symptoms reported Skin: no symptoms reported Psychiatric/Neurological: No Symptoms Reported; Denies Headache Endocrine: No Symptoms Reported Hematologic/Lymphatic: No Symptoms Reported (DALE ROBERT DO) Past Baigegh-Nlpcqo-Krspco Hx Past Med/Social Hx: Reviewed and Corrections made (DALE ROBERT DO) Patient Social History Alcohol Use: Denies Use Smoking Status: Current Everyday Smoker (1 PPD) Type Used: Cigarettes 2nd Hand Smoke Exposure: Yes Recent Infectious Disease Expo: No Recent Hopitalizations: No (DALE ROBERT DO) Immunizations Up To Date Tetanus Booster (TDap): Less than 5yrs PED Vaccines UTD: Yes (DALE ROBERT DO) Seasonal Allergies Seasonal Allergies: No (DALE ROBERT DO) Past Medical History Surgeries: Yes ( X 1; D&C'S FOR MISCARRIAGES) Section Respiratory: No Currently Using CPAP: No Currently Using BIPAP: No Cardiac: No Neurological: Yes 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 Genitourinary: No Gastrointestinal: No Musculoskeletal: No Endocrine: Yes Diabetes, Insulin dep, Hypothyroidsim HEENT: Yes (Meniere disease) Loss of Vision: Denies Hearing Impairment: Denies Cancer: No Psychosocial: Yes (OCD) Anxiety, Depression Integumentary: Yes Pruritis Blood Disorders: No (DALE ROBERT DO) Family Medical History Heart Disease, Diabetes (DALE ROBERT DO) Physical Exam Vital Signs Vital Signs - First Documented 05/08/21 21:40 Temp 36.6 Pulse 82 Resp 20 B/P (MAP) 129/75 (93) Pulse Ox 98 O2 Delivery Room Air (GRACIELA CHANCE MD) Vital Signs Capillary Refill : Less Than 3 Seconds (DALE ROBERT DO) Height/Weight/BMI Height: 5'3.00" Weight: 174lbs. oz. 78.110140wa; 33.00 BMI Method:Stated General Appearance: WD/WN, no apparent distress, other (DOES NOT APPEAR TO BE IN ANY DISCOMFORT OR DISTRESS) Respiratory: normal breath sounds, no respiratory distress, no accessory muscle use Cardiovascular: regular rate, rhythm, no murmur Gastrointestinal: soft; No distended, No guarding, No rebound; tenderness (PERIUMBILICAL TENDERNESS); No hernia, No mass Extremities: normal inspection Back: normal inspection, no CVA tenderness Neurologic/Psychiatric: no motor/sensory deficits, alert, normal mood/affect, oriented x 3 Skin: normal color; No rash (DALE ROBERT DO) Progress/Results/Core Measures Results/Orders Lab Results Laboratory Tests Test 05/08/21 22:07 05/08/21 22:13 05/09/21 02:21 05/09/21 05:11 Range/Units White Blood Count 8.9 4.3-11.0 10^3/uL Red Blood Count 4.71 3.80-5.11 10^6/uL Hemoglobin 14.6 11.5-16.0 g/dL Hematocrit 44 35-52 % Mean Corpuscular Volume 93 80-99 fL Mean Corpuscular Hemoglobin 31 25-34 pg Mean Corpuscular Hemoglobin Concent 34 32-36 g/dL Red Cell Distribution Width 14.4 10.0-14.5 % Platelet Count 214 130-400 10^3/uL Mean Platelet Volume 12.6 H 9.0-12.2 fL Immature Granulocyte % (Auto) 0 % Neutrophils (%) (Auto) 58 42-75 % Lymphocytes (%) (Auto) 33 12-44 % Monocytes (%) (Auto) 8 0-12 % Eosinophils (%) (Auto) 1 0-10 % Basophils (%) (Auto) 0 0-10 % Neutrophils # (Auto) 5.2 1.8-7.8 10^3/uL Lymphocytes # (Auto) 2.9 1.0-4.0 10^3/uL Monocytes # (Auto) 0.7 0.0-1.0 10^3/uL Eosinophils # (Auto) 0.1 0.0-0.3 10^3/uL Basophils # (Auto) 0.0 0.0-0.1 10^3/uL Immature Granulocyte # (Auto) 0.0 0.0-0.1 10^3/uL Urine Color YELLOW Urine Clarity CLEAR Urine pH 6.5 5-9 Urine Specific [place] 1.015 L 1.016-1.022 Urine Protein NEGATIVE NEGATIVE Urine Glucose (UA) 1+ H NEGATIVE Urine Ketones NEGATIVE NEGATIVE Urine Nitrite NEGATIVE NEGATIVE Urine Bilirubin NEGATIVE NEGATIVE Urine Urobilinogen 0.2 < = 1.0 MG/DL Urine Leukocyte Esterase NEGATIVE NEGATIVE Urine RBC (Auto) NEGATIVE NEGATIVE Urine RBC NONE /HPF Urine WBC NONE /HPF Urine Squamous Epithelial Cells 0-2 /HPF Urine Crystals NONE /LPF Urine Bacteria TRACE /HPF Urine Casts NONE /LPF Urine Mucus NEGATIVE /LPF Urine Culture Indicated NO Sodium Level 136 135-145 MMOL/L Potassium Level 4.0 3.6-5.0 MMOL/L Chloride Level 100 98-107 MMOL/L Carbon Dioxide Level 29 21-32 MMOL/L Anion Gap 7 5-14 MMOL/L Blood Urea Nitrogen 11 7-18 MG/DL Creatinine 0.84 0.60-1.30 MG/DL Estimat Glomerular Filtration Rate > 60 BUN/Creatinine Ratio 13 Glucose Level 229 H 70-105 MG/DL Calcium Level 9.5 8.5-10.1 MG/DL Corrected Calcium 9.4 8.5-10.1 MG/DL Magnesium Level 2.0 1.6-2.4 MG/DL Total Bilirubin 0.5 0.1-1.0 MG/DL Aspartate Amino Transf (AST/SGOT) 14 5-34 U/L Alanine Aminotransferase (ALT/SGPT) 13 0-55 U/L Alkaline Phosphatase 90 40-136 U/L Total Protein 8.3 H 6.4-8.2 GM/DL Albumin 4.1 3.2-4.5 GM/DL Amylase Level 43 25-125 U/L Lipase 15 8-78 U/L SARS-CoV-2 RNA (RT-PCR) Not Detected Not Detecte Glucometer 208 H 73 32 *L 70-110 MG/DL Test 05/09/21 05:53 05/09/21 08:02 Range/Units Glucometer 167 H 147 H 70-110 MG/DL (GRACIELA CHANCE MD) My Orders Orders - GRACIELA CHANCE MD Accucheck Stat ONCE (05/09/21 07:51) (GRACIELA CHANCE MD) Medications Given in ED Current Medications Medications Dose Ordered Sig/Jone Route Start Time Stop Time Status Last Admin Dose Admin Dextrose 50 ml ONCE ONCE IV 05/09/21 05:15 05/09/21 05:17 DC 05/09/21 05:14 50 ML Iohexol 100 ml ONCE ONCE IV 05/08/21 23:45 05/08/21 23:46 DC 05/08/21 23:39 100 ML Piperacillin Sod/ Tazobactam Sod 4.5 gm/Sodium Chloride 100 ml @ 200 mls/hr ONCE ONCE IV 05/09/21 00:45 05/09/21 01:14 DC 05/09/21 00:54 200 MLS/HR Sodium Chloride 10 ml NEEDED PRN IV 05/08/21 23:45 05/08/21 23:39 10 ML Sodium Chloride 100 ml ONCE ONCE IV 05/08/21 23:45 05/08/21 23:46 DC 05/08/21 23:39 80 ML (GRACIELA CHANCE MD) Vital Signs/I&O 05/08/21 05/09/21 21:40 08:33 Temp 36.6 Pulse 82 82 Resp 20 18 B/P (MAP) 129/75 (93) 118/64 (82) Pulse Ox 98 97 O2 Delivery Room Air Room Air (GRACIELA CHANCE MD) Blood Pressure Mean: 93 FSBG Bedside Testing Finger Stick Blood Glucose: 208 (DALE ROBERT DO) Progress Progress Note : Progress Note GIVEN IV FLUIDS AND ZOFRAN WITH IMPROVEMENT IN SYMPTOMS PT BECAME HYSTERICAL AND "ANXIOUS" WHEN I INFORMED HER OF CT FINDINGS OF APPENDICITIS PT REPORTS SHE IS "SCARED" --REASSURED PT DID DAUGHTER AND PT CALMED SOMEWHAT PT WANTING TO GO OUT AND SMOKE, PT WANTING TO GO HOME AND COME BACK LATER, PT WANTING TO EAT AND DRINK, ETC--ADVISED PT THAT SHE COULD NOT DO ANY OF THESE THINGS AT THIS TIME OFFERED A NICOTINE PATCH AND SHE ADAMANTLY REFUSES ORDERED ATIVAN, AND THEN PT REFUSED. PT EVENTUALLY CALMED AND RESTED QUIETLY.. NOW AT BEDSIDE 0510--PT FEELS LIKE BLOOD SUGAR IS LOW--CLAMMY AND A LITTLE DIZZY. ACCUCHECK 32--D50 GIVEN AND CONTINUE DEXTROSE-CONTAINING IV FLUIDS PT STATES SHE GETS LOW LIKE THIS A FEW TIMES EVERY DAY NO NAUSEA AND NO PAIN AT THIS TIME. REPEAT ACCUCHECK 167, AND PT IS SYMPTOM-FREE AT THIS TIME (DALE ROBERT DO) Progress Note : Time: 09:16 Progress Note I assumed care of this patient from Dr. Robert at shift change. I have checked on her multiple times throughout her ER stay. She declines any pain medication or nausea medication. Dr. Torrez has just been in the room to assess the patient. She should be going to surgery shortly. She is due for another dose of Zosyn which was ordered. Blood sugar has been well controlled. We did discuss postoperative management of her insulin therapy. 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 I suggested that she decrease her dose to 50% or 75% of her usual dose when she returns home this evening. (GRACIELA CHANCE MD) Diagnostic Imaging Comments CT ABDOMEN/PELVIS--+ APPENDICITIS, PER [facility] VIA FAX AT 0011 Reviewed: Reviewed by Me (DALE ROBERT DO) Departure Communication (Admissions) [facility] IS CURRENTLY ON [facility], ARE [facility] 0012--SPOKE WITH DR. TORREZ, SURGEON TOPPER PRESS OPERATOR AUTOMATIC. HE WILL CALL ME BACK 0021--SPOKE WITH DR. TORREZ AGAIN, HE ADVISES TO HOLD PT IN ER, AND HE WILL TAKE TO SAME DAY SURGERY IN AM, AND PLAN ON DISMISSING FROM SAME DAY SURGERY LATER TODAY. ADVISES TO GIVE ZOSYN. 0025--DISCUSSED THE ABOVE WITH SCHOOL HEALTH AIDE, AND SHE IS AGREEABLE TO THE ABOVE PLAN. (DALE ROBERT DO) Impression Primary Impression: Appendicitis Additional Impression: IDDM (insulin dependent diabetes mellitus) Disposition: ADMITTED INPATIENT (TO SAME DAY SURGERY) Condition: Stable Admissions Decision to Admit Reason: Admit from ER (General) (TO HOLD IN ER OVERNIGHT, THEN TO SAME DAY SURGERY IN AM) Decision to Admit/Date: May 09, 2021 Time/Decision to Admit Time: 00:25 (DALE ROBERT DO) Departure-Patient Inst. Referrals: NATALIE CANCHOLA MD (PCP/Family) Primary Care Physician Scripts Hydrocodone/Acetaminophen (Hydrocodone-Acetamin 5-325 mg) 1 Each Tablet 1 EACH PO Q4H PRN for PAIN-MODERATE (5-7), #20 TAB Prov: SUSAN TORREZ DO 05/09/21 Docusate Sodium (Colace) 100 Mg Capsule 100 MG PO BID, #30 CAP Prov: SUSAN TORREZ DO 05/09/21 Ibuprofen (Ibuprofen) 800 Mg Tablet 800 MG PO Q8H PRN for PAIN-MILD, #20 TAB Prov: SUSAN TORREZ DO 05/09/21 DALE ROBERT DO May 09, 2021 00:59 GRACIELA CHANCE MD May 09, 2021 09:18
[2021-05-09] MEDS ORDERED: D5 1/2 NS W/KCL 20 MEQ/L 1,000 ML IV SCH ×2 (02:45→05:15)
[2021-05-09] MEDS ORDERED: DEXTROSE 50% 50 ML (IMS) SYR ONE (05:13)
[2021-05-09] MEDS ORDERED: DEXTROSE 50% 50 ML (IMS) SYR IV ONE (05:15)
--- NOTE | 2021-05-09 05:32 | Diagnostic Imaging Report ---
INDICATION: ABD PAIN COMPARISON: 10/28/2019 FINDINGS: Single frontal view of the chest demonstrates normal heart size and pulmonary vascularity. The lungs are well aerated and clear. No large pleural effusion or pneumothorax is seen. The visualized osseous structures show no acute abnormalities. IMPRESSION: 1. No acute cardiopulmonary process. Dictated by: Dictated on workstation # [id number]
--- NOTE | 2021-05-09 07:26 | Diagnostic Imaging Report ---
CT ABD/PELV W (APPENDICITIS) TECHNIQUE: Multiple contiguous axial images were obtained through the abdomen and pelvis after administration of intravenous contrast. All CT scans use one or more of the following dose optimizing techniques: automated exposure control, MA and/or KvP adjustment based on patient size and exam type or iterative reconstruction. INDICATION: Right lower quadrant pain. COMPARISON: None available. FINDINGS: Lower chest: The lung bases are clear. No pericardial or pleural effusion. Peritoneum: No free intraperitoneal air or fluid. Liver and biliary system: The liver is normal. The gallbladder is normal. No biliary duct dilation. Spleen and Pancreas: Spleen is normal. The pancreas enhances normally without mass lesion or peripancreatic inflammatory changes. Adrenals: Normal. tract: The kidneys enhance normally without suspicious mass or obstruction. Urinary bladder is distended without wall thickening. No renal or ureteral stones. Uterus and ovaries are normal in appearance. GI tract: Stomach is decompressed. No bowel obstruction. No pericolonic inflammatory changes. The appendix is dilated measuring 10 mm and has a minimal amount of surrounding inflammation around its tip. No abscess formation. Vasculature and Lymph nodes: Normal caliber aorta has marked atherosclerotic plaquing present. No abdominal or pelvic lymphadenopathy. Musculoskeletal: No concerning osseous lesion. IMPRESSION: 1. Acute appendicitis without perforation or abscess. 2. Findings are in agreement with the preliminary report. Dictated by: Dictated on workstation # [id number]
[2021-05-09] MEDS ORDERED: ONDANSETRON 4 MG/2 ML (SDV) Z0FRAN ONE (09:00)
[2021-05-09] MEDS ORDERED: LIDOCAINE PF 2% 5 ML (XYLOCAINE) VIAL ONE (09:00)
[2021-05-09] MEDS ORDERED: proPOfol 200 MG/20 ML (DIPRIVAN) VIAL IV ONE (09:00)
[2021-05-09] MEDS ORDERED: fentaNYL INJ 100 MCG/2 ML AMP ONE (09:00)
[2021-05-09] MEDS ORDERED: SEVOFLURANE (ULTANE) 15 ML INHAL SOLN ONE (09:00)
[2021-05-09] MEDS ORDERED: ROCURONIUM 10 MG/ML 5 ML SYRINGE IV ONE (09:00)
[2021-05-09] MEDS ORDERED: MIDAZOLAM 2 MG/2 ML (VERSED) VIAL ONE (09:00)
[2021-05-09] MEDS ORDERED: LIDOCAINE/EPI 1%-1:100,000 (XYLOCAINE) 20ML ONE (09:08)
[2021-05-09] MEDS ORDERED: LACTATED RINGERS 1,000 ML IV PRN (09:30)
[2021-05-09] MEDS: LACTATED RINGERS 1,000 ML IV PRN ×2 (09:38→10:34)
--- NOTE | 2021-05-09 09:43 | History & Physical-Surgical ---
History of Present Illness History of Present Illness Reason for visit/HPI CC: umbilical abd pain 50 year old female with abdominal pain at umbilicus dull achy no radiation of pain. Mild discomfort. Now more in the RLQ. Patient last week or two just not feeling well. Having nausea. No emesis. Denies fever sweats chills shortness of breath or chest pain. CT showing dilated appendix consistent with appendicitis. Date of Admission T Date Seen by a Provider: May 09, 2021 Time Seen by a Provider: 09:38 I consulted on this patient on 05/09/21 09:38 Attending Physician Susan Tariq DO Admitting Physician Cuauhtemoc Duvall MD Consult Allergies and Home Medications Allergies Coded Allergies: No Known Drug Allergies (Unverified , 11/04/18) Home Medications Albuterol Sulfate 1 Puff Puff, 2 PUFF IH Q4H PRN for COUGH 1 PUFF = 90 MCG Prescribed by: SHAILESH HURTADO on 10/28/19 0501 Benzonatate 100 Mg Capsule, 100 MG PO Q6H PRN for COUGH Prescribed by: SHAILESH HURTADO on 10/28/19 0501 Patient Home Medication List Home Medication List Reviewed: Yes Past Dlfyltb-Jycnrn-Pyvjlb Hx Patient Social History Smoking Status: Current Everyday Smoker (1 PPD) Type Used: Cigarettes 2nd Hand Smoke Exposure: Yes Recent Hopitalizations: No Immunizations Up To Date Tetanus Booster (TDap): Less than 5yrs PED Vaccines UTD: Yes Seasonal Allergies Seasonal Allergies: No Surgeries History of Surgeries: Yes ( X 1; D&C'S FOR MISCARRIAGES) Surgeries: Section Respiratory History of Respiratory Disorde: No Cardiovascular History of Cardiac Disorders: No Neurological History of Neurological Disord: Yes Neurological Disorders: Vertigo 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 Genitourinary History of Genitourinary Disor: No Gastrointestinal History of Gastrointestinal Di: No Musculoskeletal History of Musculoskeletal Dis: No Endocrine History of Endocrine Disorders: Yes Endocrine Disorders: Diabetes, Insulin dep, Hypothyroidsim HEENT History of HEENT Disorders: Yes (Meniere disease) Loss of Vision: Denies Hearing Impairment: Denies Cancer History of Cancer: No Psychosocial History of Psychiatric Problem: Yes (OCD) Behavioral Health Disorders: Anxiety, Depression Integumentary History of Skin or Integumenta: Yes Skin/Integumentary Disorders: Pruritis Blood Transfusions History of Blood Disorders: No Reviewed Nursing Assessment Reviewed/Agree w Nursing PMH: Yes Family Medical History Significant Family History: Heart Disease, Diabetes Review of Systems Constitutional: No chills, No diaphoresis EENTM: No blurred vision, No double vision Respiratory: No cough, No dyspnea on exertion Cardiovascular: No chest pain, No palpitations Gastrointestinal: RLQ, abdominal pain, nausea; No vomiting Genitourinary: decreased output, discharge Musculoskeletal: No back pain, No joint pain Skin: No change in color, No change in hair/nails Psychiatric/Neurological: Denies Anxiety, Denies Depressed, Denies Emotional Problems All Other Systems Reviewed Negative Unless Noted: Yes (Negative excepted noted.) Physical Exam Vital Signs Vital Signs - First Documented 05/08/21 21:40 Temp 36.6 Pulse 82 Resp 20 B/P (MAP) 129/75 (93) Pulse Ox 98 O2 Delivery Room Air Capillary Refill : Less Than 3 Seconds Height, Weight, BMI Height: 5'3.00" Weight: 174lbs. oz. 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 as Tested Skin: Normal Color, Warm/Dry Lymphatic: No Adenopathy Data Review Labs Laboratory Tests 05/08/21 22:07: White Blood Count 8.9, Red Blood Count 4.71, Hemoglobin 14.6, Hematocrit 44, Mean Corpuscular Volume 93, Mean Corpuscular Hemoglobin 31, Mean Corpuscular Hemoglobin Concent 34, Red Cell Distribution Width 14.4, Platelet Count 214, Mean Platelet Volume 12.6H, Immature Granulocyte % (Auto) 0, Neutrophils (%) (Auto) 58, Lymphocytes (%) (Auto) 33, Monocytes (%) (Auto) 8, Eosinophils (%) (A uto) 1, Basophils (%) (Auto) 0, Neutrophils # (Auto) 5.2, Lymphocytes # (Auto) 2.9, Monocytes # (Auto) 0.7, Eosinophils # (Auto) 0.1, Basophils # (Auto) 0.0, Immature Granulocyte # (Auto) 0.0, Urine Color YELLOW, Urine Clarity CLEAR, Urine pH 6.5, Urine Specific [place] 1.015L, Urine Protein NEGATIVE, Urine Glucose (UA) 1+H, Urine Ketones NEGATIVE, Urine Nitrite NEGATIVE, Urine Bilirubin NEGATIVE, Urine Urobilinogen 0.2, Urine Leukocyte Esterase NEGATIVE, Urine RBC (Auto) NEGATIVE, Urine RBC NONE, Urine WBC NONE, Urine Squamous Epithelial Cells 0-2, Urine Crystals NONE, Urine Bacteria TRACE, Urine Casts NONE, Urine Mucus NEGATIVE, Urine Culture Indicated NO, Sodium Level 136, Potassium Level 4.0, Chloride Level 100, Carbon Dioxide Level 29, Anion Gap 7, Blood Urea Nitrogen 11, Creatinine 0.84, Estimat Glomerular Filtration Rate > 60, BUN/Creatinine Ratio 13, Glucose Level 229H, Calcium Level 9.5, Corrected Calcium 9.4, Magnesium Level 2.0, Total Bilirubin 0.5, Aspartate Amino Transf (AST/SGOT) 14, Alanine Aminotransferase (ALT/SGPT) 13, Alkaline Phosphatase 90, Total Protein 8.3H, Albumin 4.1, Amylase Level 43, Lipase 15, SARS-CoV-2 RNA (RT-PCR) Not Detected 05/08/21 22:13: Glucometer 208H 05/09/21 02:21: Glucometer 73 05/09/21 05:11: Glucometer 32*L 05/09/21 05:53: Glucometer 167H 05/09/21 08:02: Glucometer 147H Assessment/Plan Assessment/Plan Admission Diagonsis rlq abd pain nausea acute appendicitis IDDM Admission Status: Other (Same Day Surgery) Assessment/Plan rlq abd pain nausea acute appendicitis IDDM NPO IV hydration discussed risks and benefits of laparoscopic appendectomy all other indicated procedures. On SUSAN Bird DO May 09, 2021 09:43
[2021-05-09] MEDS ORDERED: PHENYLEPHRINE 100 MCG/ML 10 ML (ANESTHESIA) SYR ONE (09:55)
[2021-05-09] MEDS ORDERED: WATER (STERILE) FOR INJECTION 40 ML ONE (10:06)
[2021-05-09] MEDS ORDERED: ceFAZolin INJECTION 2,000 MG ONE (10:06)
[2021-05-09] MEDS ORDERED: GLYCOPYRROLATE 0.2 MG/ML (ROBINUL) 2 ML VIAL ONE ×2 (10:07→10:27)
[2021-05-09] MEDS ORDERED: metroNIDAZOLE 500MG/100ML IVPB 100 ML ONE (10:09)
[2021-05-09] MEDS ORDERED: NEOSTIGMINE 3 MG/3 ML VIAL ONE (10:27)
[2021-05-09] MEDS ORDERED: metroNIDAZOLE 500MG/100ML IVPB 100 ML IV ONE (10:30)
[2021-05-09] MEDS ORDERED: IBUP-1780 PO (10:35)
[2021-05-09] MEDS ORDERED: DOCU-143 PO (10:35)
[2021-05-09] MEDS ORDERED: ACHD5005 PO (10:35)
--- NOTE | 2021-05-09 10:36 | Discharge Inst-Simple/Standard ---
Discharge Inst-Standard Discharge Medications New, Converted or Re-Newed RX: Transmitted to Pharmacy Patient Instructions/Follow Up Plan of Care/Instructions/FU: 2 weeks Marciano Activity as Tolerated: No Discharge Diet: Regular Diet Other Inst to Patient Follow up Appt: Make appointment for 2 week. Instructions: No lifting greater than 10 pounds. No strenuous activity. May shower in 24 hours, no tub bath or soaking. Use incentive spirometer at home as directed. No Smoking Skin/Wound Care: You have special glue over your incision that will fall off on it's own. Symptoms to Report: Appetite Changes, Extremity Discoloration, Numbness/Tingling, Swelling Increased, Bleeding Excessive, Eyesight Changes, Pain Increased, Urine Color Change, Constipation(Persistent), Fever over 101 degree F, Pain/Pressure in chest, Urinating Difficulty, Cough Up/Vomit Blood, Heart Beat Irreg/Pounding, Pain/Pressure in jaw, Vaginal Bleeding Increase, Cramps in feet or legs, Lightheadedness, Pain/Pressure in shoulder, Diarrhea(Persistent), Memory Changes Suddenly, Questions/Concerns, Weight gain consecutive days, Dizziness/Fainting, Nausea/Vomiting, Shortness of Breath, Weight gain over 2 pounds If questions or concerns contact your physician Or seek help at emergency department. SUSAN TORREZ DO May 09, 2021 10:36
--- NOTE | 2021-05-09 10:38 | Progress Note-Post Operative ---
Post-Operative Progess Note Surgeon (s)/Real Estate Sales Supervisor (s) Surgeon SUSAN TORREZ DO Real Estate Sales Supervisor: na Pre-Operative Diagnosis acute appendicitis, rlq abdominal pain Post-Operative Diagnosis same Procedure & Operative Findings Date of Procedure 05/09/21 Procedure Performed/Findings PROCEDURE: Laparoscopic appendectomy. COMPLICATIONS: None. INDICATIONS: The patient is a 50 year old female who has been having right lower quadrant abdominal pain. Patient's exam consistent with appendicitis. I discussed risk and benefits of laparoscopic appendectomy and all indicated procedures with the possibility being a normal appendix. The patient understands the risks and benefits and wishes to proceed. Consent was signed on the chart. DESCRIPTION OF PROCEDURE: The patient was taken to the operating suite, prepped and draped in a sterile fashion. Timeout was performed. Local anesthetic was infiltrated just above the umbilicus and 11-blade scalpel was used to make a skin incision. Cautery was used to dissect down to the fascia and scored. Kochers were used to grasp and elevate it and the abdomen was then entered. A 0 Vicryl was placed in a veokjn-el-yudgu fashion for closure at the end of the case. The balloon trocar was inserted into the abdomen and pneumoperitoneum was achieved. Under direct visualization of the laparoscope, a 5 mm trocar was placed in the suprapubic region and a 5 mm trocar was placed in the left lower quadrant. Appendix was located, Inflamed dilated appendix. The mesoappendix divided to base of the appendix. Once at the base an Endo-JUAN PABLO 2.5 stapler was then fired across the base of the appendix. It was then placed in an Endobag and removed through the 12 mm trocar site. The abdomen was then irrigated and suctioned. No other pathology noted. The abdomen was then desufflated and the trocars were removed. The 0 Vicryl placed at the beginning of the case was then tied closing the 12 mm fascial defect. The skin was then closed using 4-0 Monocryl in a subcuticular fashion. The abdomen was then washed and dried and Skin Affix was placed over the incisions. The patient tolerated the procedure well without any complications and was taken to the recovery room in stable condition. Anesthesia Type general Estimated Blood Loss Estimated blood loss (mL): minimal Specimens/Packing Specimens Removed appendix SUSAN TORREZ DO May 09, 2021 10:38
[2021-05-09] MEDS ORDERED: HYDROmorphone 2 MG/ML VIAL (DILAUDID) IV ONE (11:00)
[2021-05-09] MEDS ORDERED: ONDANSETRON 4 MG/2 ML (SDV) Z0FRAN IVP PRN (11:00)
[2021-05-09] MEDS ORDERED: IBUPROFEN 800 MG (MOTRIN) TAB PO ONE (12:00)
[2021-05-09] MEDS ORDERED: IBUPROFEN TABLET 200 MG TAB PO ONE ×2 (12:00→12:15)
--- NOTE | 2021-05-09 17:06 | Anesthesia-General Post-Op ---
General Patient Condition Mental Status/LOC: Same as Preop Cardiovascular: Satisfactory Nausea/Vomiting: Absent Respiratory: Satisfactory Pain: Controlled Complications: Absent Post Op Complications Complications None Follow Up Care/Instructions Patient Instructions None needed. Anesthesia/Patient Condition Patient Condition Patient is doing well, no complaints, stable vital signs, no apparent adverse anesthesia problems. No complications reported per nursing. D/C home per [facility] [place] Criteria: Yes IRA ARRIETA CRNA May 09, 2021 17:06
== END 2021-05-09 12:50 | disposition home or self-care (01) ==
LOC: EDUNIT# 21:10 → ER 21:12 → SDC 21:13
PROVIDERS: ATTEND Surgery
DX: C18.1 Malignant neoplasm of appendix (principal); E11.9 Type 2 diabetes mellitus without complications; E03.9 Hypothyroidism, unspecified; F41.9 Anxiety disorder, unspecified; F32.9 Major depressive disorder, single episode, unspecified; F42.9 Obsessive-compulsive disorder, unspecified; F17.210 Nicotine dependence, cigarettes, uncomplicated; Z79.899 Other long term (current) drug therapy; Z79.4 Long term (current) use of insulin
CPT/HCPCS: 36415; 71045; 74177; 80053; 81000; 82150; 82947; 83690; 83735; 85025; 87636; 88304; 93041; 96361; 96365; 96375

== ENCOUNTER → 2021-11-07 | Outpatient (CLI) | payer MEDICAID ==
[~2021-11-07] MED LIST changes: +ACHD5005 PO; +DOCU-143 PO; +IBUP-1780 PO; +ONDA-106; -ONDA8TAB15
--- NOTE | 2021-11-07 12:38 | Diagnostic Imaging Report ---
Indication: Routine screening. No prior mammograms are available for comparison. This a baseline study. 2-D and 3-D bilateral screening mammography was performed with CAD. Both breasts are heterogeneously dense, limiting the sensitivity of mammography. No mass or malignant-appearing microcalcifications are seen. Axillae are unremarkable. IMPRESSION: BI-RADS Category 1 No mammographic features suspicious for malignancy are identified. ACR BI-RADS Category 1: Negative. Result letter will be mailed to the patient. Note: At least 10% of breast cancer is not imaged by mammography. Dictated by: Dictated on workstation # [id number]
--- NOTE | 2021-11-07 13:23 | Diagnostic Imaging Report ---
PROCEDURE: US Thyroid. TECHNIQUE: Multiple real-time grayscale images were obtained of the thyroid in various projections. INDICATION: Goiter. FINDINGS: The thyroid shows rather heterogeneous uniform appearance of both lobes with enlargement of the thyroid. The right lobe measures 6.2 x 3 x 3.5 cm. The left lobe measures 6 x 3 x 3 cm. The isthmus is 1 cm. There is mild hypervascularity. There are no focal nodules. IMPRESSION: Thyromegaly without evidence of a focal nodule. Dictated by: Dictated on workstation # [id number]
--- NOTE | 2021-11-07 13:27 | Diagnostic Imaging Report ---
PROCEDURE: US carotid duplex, bilateral. TECHNIQUE: Multiple real-time grayscale images were obtained over the carotid arteries in various projections, bilaterally. Additional spectral analysis and color Doppler duplex images were also obtained. INDICATION: Carotid bruit. FINDINGS: There is mild atherosclerotic plaquing within the carotid bulb bilaterally. Color Doppler imaging shows antegrade flow throughout the carotid and vertebral arteries. Doppler sampling shows waveforms and peak velocities to be normal throughout with normal carotid ratios. IMPRESSION: Mild atherosclerotic plaquing in the carotid arteries with no hemodynamic changes. Stenosis estimated less than 30% within the internal carotid arteries. Parameters based on the consensus panel Garcia-Scale and Doppler ultrasound criteria published September 2003, Radiology, Volume 229. DOPPLER (peak systolic velocity M/S Right Left CCA 1.04 .97 ICA Proximal .86 .93 ICA Mid .79 1.17 ICA Distal .88 .96 RATIO .84 1.2 ECA 1.17 1.22 VERT .44 .46 Dictated by: Dictated on workstation # [id number]
== END ==
LOC: RAD 10:09
PROVIDERS: ATTEND Nurse Practitioner Family
DX: Z12.31 Encounter for screening mammogram for malignant neoplasm of breast (principal); I65.23 Occlusion and stenosis of bilateral carotid arteries; E01.0 Iodine-deficiency related diffuse (endemic) goiter
CPT/HCPCS: 76536; 77063; 77067; 93880

== ENCOUNTER 2023-08-07 15:34 | Emergency (ER) | payer MEDICAID ==
[~2023-08-07 15:34] MED LIST changes: +ALBU8.5H6 IH; -RT-ALBUINH IH
[2023-08-07] MEDS ORDERED: ASPIRIN 81 MG CHEWABLE TABLET PO ONE (16:00)
--- NOTE | 2023-08-07 16:03 | ED Chest Pain ---
General Chief Complaint: Chest Pain Stated Complaint: COUGHING/BACK/CHEST PAIN Source: patient Exam Limitations: no limitations History of Present Illness Date Seen by Provider: Aug 07, 2023 Time Seen by Provider: 15:59 Initial Comments Patient is a 52-year-old female with a history of of type 1 diabetes, smoking who presents ED with chest pain, back pain. She states last night she started coughing. This is a nonproductive cough. Continue coughing throughout the day. Around 1 PM she ate and started coughing felt a sharp pain in her right upper back. This pain radiate to the right side of chest. She states she was having difficulty breathing and catching her breath. EMS was contacted and she was evaluated. She came to ED by POV. She does have an upset stomach. She states she gets some abdominal discomfort after eating. History of constipation. She does have her gallbladder. Denies history of coronary artery disease, COPD or asthma. She states pain is improved at this time. She had COVID about 3 months ago. She does report some fatigue and weakness. Denies frequent urination, pain with urination, headache, dizziness, visual changes, sore throat, ear pain, nausea, vomiting, diarrhea Allergies and Home Medications Allergies Coded Allergies: No Known Drug Allergies (Unverified , 11/04/18) Patient Home Medication List Home Medication List Reviewed: Yes Albuterol Sulfate (Ventolin Hfa) 1 Puff Puff, 2 PUFF IH Q4H PRN for COUGH Prescribed by: SHAILESH HURTADO on 10/28/19 0501 Benzonatate (Tessalon Perle) 100 Mg Capsule, 100 MG PO Q6H PRN for COUGH Prescribed by: SHAILESH HURTADO on 10/28/19 0501 Blood Sugar Diagnostic (True Metrix Glucose Test Strip) 1 Each Strip, (Reported) Entered as Reported by: ELSA ACOSTA on 10/28/19 0427 Docusate Sodium (Colace) 100 Mg Capsule, 100 MG PO BID Prescribed by: SUSAN TORREZ on 05/09/21 1035 Hydrocodone/Acetaminophen (Hydrocodone-Acetamin 5-325 mg) 1 Each Tablet, 1 EACH PO Q4H PRN for PAIN-MODERATE (5-7) Prescribed by: SUSAN TORREZ on 05/09/21 1036 Ibuprofen (Ibuprofen) 800 Mg Tablet, 800 MG PO Q8H PRN for PAIN-MILD Prescribed by: SUSAN TORREZ on 05/09/21 1035 Insulin Glargine,Hum.rec.anlog (Lantus Solostar) 100 Unit/1 Ml Insuln.pen, (Reported) Entered as Reported by: ELSA ACOSTA on 10/28/19426 Insulin Lispro (Humalog) Unknown Strength Vial, Unknown Dose, (Reported) Entered as Reported by: ELSA ACOSTA on 10/28/19426 Levothyroxine Sodium (Levothyroxine Sodium) 75 Mcg Tablet, (Reported) Entered as Reported by: ELSA ACOSTA on 10/28/19426 Ondansetron HCl (Ondansetron HCl) 8 Mg Tablet, (Reported) Entered as Reported by: ELSA ACOSTA on 10/28/19426 Syring W-Ndl,Disp,Insul,0.3 ml (Insulin Syringe) 1 Each Disp.syrin, (Reported), (DME) Entered as Reported by: ELSA ACOSTA on 10/28/19426 Review of Systems Review of Systems Constitutional: No chills, No diaphoresis, No fever; malaise, weakness EENTM: No Double Vision, No Eye Pain Respiratory: Denies Cough Cardiovascular: Chest Pain Gastrointestinal: Abdominal Pain; Denies Diarrhea, Denies Nausea, Denies Vomiting Genitourinary: Denies Burning, Denies Discharge, Denies Drainage, Denies Frequency Musculoskeletal: No back pain, No joint pain Skin: No change in color, No change in hair/nails All Other Systems Reviewed Negative Unless Noted: Yes Past Spxrijp-Wzlfnq-Skrvhj Hx Patient Social History Tobacco Use?: Yes Tobacco type used: Cigarettes Substance use?: No Alcohol Use?: No Pt feels they are or have been: No Immunizations Up To Date Tetanus Booster (TDap): Less than 5yrs PED Vaccines UTD: Yes Seasonal Allergies Seasonal Allergies: No Past Medical History Surgery/Hospitalization HX: , appy, d&c, dm, panic disorder Surgeries: Yes ( X 1; D&C'S FOR MISCARRIAGES) Section Respiratory: No Currently Using CPAP: No Currently Using BIPAP: No Cardiac: No Neurological: Yes Vert[employer] History: Menopausal Genitourinary: No Gastrointestinal: No Musculoskeletal: No Endocrine: Yes Diabetes, Insulin dep, Hypothyroidsim HEENT: Yes (Meniere disease) Loss of Vision: Denies Hearing Impairment: Denies Cancer: No Psychosocial: Yes (OCD) Anxiety, Depression Integumentary: Yes Pruritis Blood Disorders: No Family Medical History Heart Disease, Diabetes Physical Exam Vital Signs Vital Signs - First Documented 08/07/23 15:40 Temp 35.6 Pulse 82 Resp 14 B/P (MAP) 104/61 (75) Pulse Ox 99 O2 Delivery Room Air Capillary Refill : Height, Weight, BMI Height: 5'3.00" Weight: 174lbs. oz. 78.641525gv; 33.00 BMI Method:Stated General Appearance: No Apparent Distress, WD/WN HEENT: PERRL/EOMI, TMs Normal, Normal ENT Inspection, Pharynx Normal Neck: Full Range of Motion, Normal Inspection, Non Tender, Supple Respiratory: Chest Non Tender, Normal Breath Sounds, No Accessory Muscle Use, No Respiratory Distress, Other (Right-sided upper back tenderness.) Cardiovascular: Regular Rate, Rhythm, No Gallop, No JVD, No Murmur Gastrointestinal: Normal Bowel Sounds, No Organomegaly, No Pulsatile Mass, Soft, Other (Right upper quadrant tenderness, left lower quadrant tenderness. Normal bowel sounds are out) Extremity: Normal Capillary Refill, Normal Inspection, Normal Range of Motion, Non Tender Neurologic/Psychiatric: Alert, Oriented x3, No Motor/Sensory Deficits, Normal Mood/Affect, bilingual patient support caseworker II-XII Norm as Tested Skin: Normal Color, Warm/Dry Progress/Results/Core Measures Results/Orders Lab Results Laboratory Tests Test 08/07/23 15:50 08/07/23 16:09 08/07/23 17:05 Range/Units White Blood Count 11.9 H 4.3-11.0 10^3/uL Red Blood Count 4.58 3.80-5.11 10^6/uL Hemoglobin 14.5 11.5-16.0 g/dL Hematocrit 43 35-52 % Mean Corpuscular Volume 94 80-99 fL Mean Corpuscular Hemoglobin 32 25-34 pg Mean Corpuscular Hemoglobin Concent 34 32-36 g/dL Red Cell Distribution Width 14.7 H 10.0-14.5 % Platelet Count 216 130-400 10^3/uL Mean Platelet Volume 12.6 H 9.0-12.2 fL Immature Granulocyte % (Auto) 0 % Neutrophils (%) (Auto) 70 42-75 % Lymphocytes (%) (Auto) 21 12-44 % Monocytes (%) (Auto) 9 0-12 % Eosinophils (%) (Auto) 1 0-10 % Basophils (%) (Auto) 0 0-10 % Neutrophils # (Auto) 8.3 H 1.8-7.8 10^3/uL Lymphocytes # (Auto) 2.5 1.0-4.0 10^3/uL Monocytes # (Auto) 1.0 0.0-1.0 10^3/uL Eosinophils # (Auto) 0.1 0.0-0.3 10^3/uL Basophils # (Auto) 0.0 0.0-0.1 10^3/uL Immature Granulocyte # (Auto) 0.0 0.0-0.1 10^3/uL Prothrombin Time 12.3 12.2-14.7 SEC INR Comment 0.9 0.8-1.4 Activated Partial Thromboplast Time 38 H 24-35 SEC Sodium Level 139 135-145 MMOL/L Potassium Level 3.9 3.6-5.0 MMOL/L Chloride Level 102 98-107 MMOL/L Carbon Dioxide Level 26 21-32 MMOL/L Anion Gap 11 5-14 MMOL/L Blood Urea Nitrogen 13 7-18 MG/DL Creatinine 0.69 0.60-1.30 MG/DL Estimat Glomerular Filtration Rate 103 BUN/Creatinine Ratio 19 Glucose Level 64 L 70-105 MG/DL Calcium Level 9.1 8.5-10.1 MG/DL Corrected Calcium 9.1 8.5-10.1 MG/DL Magnesium Level 2.0 1.6-2.4 MG/DL Total Bilirubin 0.5 0.1-1.0 MG/DL Aspartate Amino Transf (AST/SGOT) 13 5-34 U/L Alanine Aminotransferase (ALT/SGPT) 10 0-55 U/L Alkaline Phosphatase 87 40-136 U/L Myoglobin 23.7 10.0-92.0 NG/ML Troponin I < 0.028 <0.028 NG/ML B-Type Natriuretic Peptide 43.9 <100.0 PG/ML Total Protein 7.8 6.4-8.2 GM/DL Albumin 4.0 3.2-4.5 GM/DL Lipase 16 8-78 U/L Thyroid Stimulating Hormone (TSH) 18.37 H 0.35-4.94 UIU/ML Influenza Type A (RT-PCR) Not Detected Not Detecte Influenza Type B (RT-PCR) Not Detected Not Detecte SARS-CoV-2 RNA (RT-PCR) Not Detected Not Detecte Urine Color YELLOW Urine Clarity CLEAR Urine pH 6.0 5-9 Urine Specific [place] 1.010 L 1.016-1.022 Urine Protein NEGATIVE NEGATIVE Urine Glucose (UA) NEGATIVE NEGATIVE Urine Ketones NEGATIVE NEGATIVE Urine Nitrite NEGATIVE NEGATIVE Urine Bilirubin NEGATIVE NEGATIVE Urine Urobilinogen 0.2 < = 1.0 MG/DL Urine Leukocyte Esterase NEGATIVE NEGATIVE Urine RBC (Auto) NEGATIVE NEGATIVE Urine RBC NONE /HPF Urine WBC NONE /HPF Urine Squamous Epithelial Cells RARE /HPF Urine Crystals NONE /LPF Urine Bacteria NEGATIVE /HPF Urine Casts NONE /LPF Urine Mucus NEGATIVE /LPF Urine Culture Indicated NO My Orders Orders - TARAS CAM PA Cbc With Automated Diff (08/07/23 15:58) Magnesium (08/07/23 15:58) Chest 1 View, Ap/Pa Only (08/07/23 15:58) Ekg Tracing (08/07/23 15:58) Comprehensive Metabolic Panel (08/07/23 15:58) Myoglobin Serum (08/07/23 15:58) Protime With Inr (08/07/23 15:58) Partial Thromboplastin Time (08/07/23 15:58) O2 (08/07/23 15:58) Monitor-Rhythm Ecg Trace Only (08/07/23 15:58) Ed Iv/Invasive Line Start (08/07/23 15:58) Lipase (08/07/23 15:58) Bnp [place] (08/07/23 15:58) Troponin I Sun (08/07/23 15:58) Aspirin Chewable Tablet (Aspirin Chewabl (08/07/23 16:00) Thyroid Stimulating Hormone (08/07/23 15:58) Ua Culture If Indicated (08/07/23 16:05) Covid 19 Inhouse Test (08/07/23 16:05) Influenza A And B By Pcr (08/07/23 16:05) Medications Given in ED Current Medications Medications Dose Ordered Sig/Jone Route Start Time Stop Time Status Last Admin Dose Admin Aspirin 324 mg ONCE ONCE PO 08/07/23 16:00 08/07/23 16:01 DC 08/07/23 16:09 324 MG Vital Signs/I&O 08/07/23 08/07/23 15:40 17:24 Temp 35.6 35.6 Pulse 82 75 Resp 14 14 B/P (MAP) 104/61 (75) 118/82 Pulse Ox 99 99 O2 Delivery Room Air Room Air Comment Sinus rhythm, possible right ventricular conduction delay, 81 bpm, QRS duration 82 MS, QTc 425 MS Departure Communication (PCP) Patient is a 52-year-old female with a history of type 1 diabetes, hypothyroidism not currently taking her thyroid medication who presents to ED with right-sided posterior back pain, right-sided chest pain and general abdominal pain. Patient states this started after she had a coughing fit at [facility]. She reports coughing since last night. she was having difficulty catching her breath when this pain started. She started to panic. No history of COPD or known cardiac history but does smoke. Pain radiatign from the back to the right sided chest. called EMS and decided to come by POV. On arrival she is currently asymptomatic. Differential diagnosis, pleurisy, costochondritis, ACS, cholecystitis, cholelithiasis, pancreatitis. She did have some right upper quadrant left lower quadrant tenderness but very minimal without any guarding. She is afebrile. Vital signs stable. EKG was obtained which showed sinus rhythm without evidence of ST elevation or depression. She did receive a full aspirin. CBC, CMP was grossly unremarkable. Normal troponin. Her blood sugar was 64. After her results returned she was able to eat some crackers. She is type I diabetic. She states she has been feeling fatigued and weak over the past 2 to 3 months.. She did stop her thyroid medication. Did add TSH which showed 18. She does have a history of hypothyroidism. This could be a result of her fatigue and weakness which I suggest restarting her Synthroid 100 mcg again. She does have prescription at home. She denies any vomiting or diarrhea. Did add COVID influenza which were negative. COVID 3 months ago. She did have some right-sided pleuritic chest wall tenderness on palpation of the chest and back. I suspect that this is more the result of her pain. She did become anxious after giving her dose of aspirin. She believes she had a panic attack when she was having difficulty breathing and when this pain started. She did eat right before. She denies history of GERD but has a history of abdominal discomfort after eating which she believes the pain is a result from in her abdomen. Reassessed the abdomen with any epigastric or right upper quadrant tenderness. Normal lipase. Do not suspect cholecystitis or pancreatitis at this time. At this time recommend anti-inflammatories, heating pad. I did recommend something for the cough. Chest x-ray did not show any evidence of pneumonia or pneumothorax. May have any underlying viral infection. She does not require oxygen or is tachycardic. Low risk for PE. Heart score 2. No leg tenderness. Recommend continue monitoring symptoms at home. If any worsening symptoms such as chest pain or shortness of breath to return back to ED. Follow-up with your PCP in 2 days for evaluation. Impression Primary Impression: Pleuritic chest pain Disposition: HOME, SELF-CARE Condition: Stable Departure-Patient Inst. Decision time for Depature: 17:12 Referrals: [facility] [place] (PCP/Family) Primary Care Physician Patient Instructions: Pleuritic Chest Pain ED Add. Discharge Instructions: Recommend anti-inflammatories for pain. May try heating pad. if increasing pain short of breath return back to ED. May try [id number] cough medication such as Robitussin or delsym for cough All discharge instructions reviewed with patient and/or family. Voiced understanding. TARAS CAM Aug 07, 2023 16:02
[2023-08-07 16:07] LABS: BASOPHILS % (AUTO) 0 % (0-10); EOSINOPHILS # (AUTO) 0.1 10^3/uL (0.0-0.3); EOSINOPHILS % (AUTO) 1 % (0-10); HEMATOCRIT 43 % (35-52); HEMOGLOBIN 14.5 g/dL (11.5-16.0); LYMPHOCYTES # (AUTO) 2.5 10^3/uL (1.0-4.0); LYMPHOCYTES % (AUTO) 21 % (12-44); MEAN CORPUSCULAR HEMOGLOBIN 32 pg (25-34); MEAN CORPUSCULAR HGB CONC 34 g/dL (32-36); MEAN CORPUSCULAR VOLUME 94 fL (80-99); MEAN PLATELET VOLUME 12.6 fL (9.0-12.2); MONOCYTES % (AUTO) 9 % (0-12); NEUTROPHILS # (AUTO) 8.3 10^3/uL (1.8-7.8); NEUTROPHILS % (AUTO) 70 % (42-75); PLATELET COUNT 216 10^3/uL (130-400); WHITE BLOOD COUNT 11.9 10^3/uL (4.3-11.0)
[2023-08-07 16:09] LABS: CHLORIDE 102 MMOL/L (98-107); POTASSIUM 3.9 MMOL/L (3.6-5.0); SODIUM 139 MMOL/L (135-145)
[2023-08-07 16:11] LABS: CALCIUM 9.1 MG/DL (8.5-10.1)
[2023-08-07 16:12] LABS: GLUCOSE 64 MG/DL (70-105); TOTAL PROTEIN 7.8 GM/DL (6.4-8.2)
[2023-08-07 16:13] LABS: CARBON DIOXIDE 26 MMOL/L (21-32); INR 0.9 (0.8-1.4); PROTHROMBIN TIME PATIENT 12.3 SEC (12.2-14.7)
[2023-08-07 16:14] LABS: BILIRUBIN,TOTAL 0.5 MG/DL (0.1-1.0)
[2023-08-07 16:15] LABS: ALKALINE PHOSPHATASE 87 U/L (40-136); CREATININE SERUM 0.69 MG/DL (0.60-1.30); GFR ESTIMATED 103
[2023-08-07 16:16] LABS: BUN/CREATININE RATIO 19
[2023-08-07 16:18] LABS: ALANINE AMINOTRANSFERASE 10 U/L (0-55)
[2023-08-07 16:19] LABS: LIPASE 16 U/L (8-78)
--- NOTE | 2023-08-07 16:20 | Diagnostic Imaging Report ---
PATIENT HISTORY: Chest pain. TECHNIQUE: Single frontal view of the chest. COMPARISON: 05/08/2021. FINDINGS: The lung volumes are normal. No focal consolidation is seen. No large pleural effusion or pneumothorax is seen. The cardiomediastinal silhouette is normal in size and contour. No acute osseous abnormality is seen. IMPRESSION: No acute pulmonary abnormality seen. Dictated by: Dictated on workstation # [id number]
[2023-08-07 17:24] VITALS: BP 118/82
[2023-08-07 17:31] LABS: BACTERIA,URINE NEGATIVE /HPF; BILIRUBIN,URINE NEGATIVE (NEGATIVE); CLARITY,URINE CLEAR; COLOR,URINE YELLOW; GLUCOSE, URINE (UA) NEGATIVE (NEGATIVE); KETONES,URINE NEGATIVE (NEGATIVE); LEUKOCYTE ESTERASE ,URINE NEGATIVE (NEGATIVE); NITRITE,URINE NEGATIVE (NEGATIVE); PROTEIN,URINE NEGATIVE (NEGATIVE); SQUAMOUS EPITHELIAL CELL,UR RARE /HPF
== END 2023-08-07 17:25 | disposition home or self-care (01) ==
LOC: EDUNIT# 15:34 → ER 15:37
DX: R07.81 Pleurodynia (principal); E11.9 Type 2 diabetes mellitus without complications; F17.210 Nicotine dependence, cigarettes, uncomplicated; Z20.822 Contact with and (suspected) exposure to COVID-19; Z86.16 Personal history of COVID-19; Z79.4 Long term (current) use of insulin
CPT/HCPCS: 36415; 71045; 80053; 81000; 83690; 83735; 83874; 83880; 84443; 84484; 85025; 85610; 85730; 87636; 93005; 93041